=== PATIENT | female | born 1970 | race Caucasian/White ===

== ENCOUNTER 2017-11-26 15:55 | Inpatient (IN) | payer OTHER ==
[2017-11-26 17:04] LABS: ADD MAN DIFF? NO
[2017-11-26 17:05] LABS: BASOPHIL # 0.1 10^3/ul (0.0-0.1); BASOPHILS % 0.4 % (0.0-2.0); EOSINOPHILS % 0.3 % (0.0-7.0); HEMATOCRIT 36.9 % (37.0-47.0); HEMOGLOBIN 13.2 g/dl (12.0-16.0); LYMPHOCYTES # 4.7 10^3/ul (0.8-2.9); LYMPHOCYTES % 40.5 % (15.0-51.0); MEAN CORPUSCULAR HEMOGLOBIN 34.3 pg (29.0-33.0); MEAN CORPUSCULAR HGB CONC 35.8 g/dl (32.0-37.0); MEAN CORPUSCULAR VOLUME 95.8 fl (82.0-101.0); MEAN PLATELET VOLUME 11.5 fl (7.4-10.4); MONOCYTE # 0.7 10^3/ul (0.3-0.9); MONOCYTES % 6.3 % (0.0-11.0); NEUTROPHIL # 6.1 10^3/ul (1.6-7.5); NEUTROPHILS % 52.2 % (39.0-77.0); PLATELET COUNT 205 10^3/UL (140-415); RED BLOOD COUNT 3.85 10^6/ul (4.20-5.40); RED CELL DISTRIBUTION WIDTH 13.6 % (11.5-14.5)
[2017-11-26 17:05] LABS: WHITE BLOOD COUNT 11.7 10^3/ul (4.8-10.8)
[2017-11-26] MEDS: ONDANSETRON 4 MG INJ IV ×2 (17:19→19:57)
[2017-11-26] MEDS: SOD CHLORIDE 0.9% 1,000 ML IV ×2 (17:19→19:57)
[2017-11-26] MEDS: morphine 4 MG/ML VIAL IV (17:20)
[2017-11-26 17:21] LABS: INR 0.95; PROTIME 12.8 Sec (11.9-14.9)
[2017-11-26 17:28] LABS: ALANINE AMINOTRANSFERASE 58 IU/L (13-69); ALBUMIN 4.5 g/dl (3.3-4.9); ALBUMIN/GLOBULIN RATIO 1.18; ALKALINE PHOSPHATASE 113 IU/L (42-121); AMYLASE 77 U/L (11-123); ANION GAP 16 (8-16); ASPARTATE AMINO TRANSFERASE 65 IU/L (15-46); BILIRUBIN,INDIRECT 0.2 mg/dl (0-1.1); BILIRUBIN,TOTAL 0.2 mg/dl (0.2-1.3); BLOOD UREA NITROGEN 8 mg/dl (7-20); CARBON DIOXIDE 29 mmol/L (21-31); CHLORIDE 92 mmol/L (97-110); CREATININE 0.67 mg/dl (0.44-1.00); GLUCOSE 98 mg/dl (70-220); LIPASE 36 U/L (23-300); POTASSIUM 3.2 mmol/L (3.5-5.1); SODIUM 134 mmol/L (135-144); TOTAL PROTEIN 8.3 g/dl (6.1-8.1)
[2017-11-26 17:54] LABS: TROPONIN-I < 0.012 ng/ml (0.00-0.12)
[2017-11-26] MEDS: DIAZEPAM 5 MG/ML SYG IV (18:57)
[2017-11-26] MEDS ORDERED: morphine 2 MG INJ IV (19:00)
[2017-11-26] MEDS ORDERED: ACETAMINOPHEN 325 MG TAB PO ×2 (19:00)
[2017-11-26 19:30] LABS: ADD UMIC YES; UR ASCORBIC ACID NEGATIVE (NEGATIVE); UR BILIRUBIN (Dip) NEGATIVE (NEGATIVE); UR BLOOD (Dip) NEGATIVE (NEGATIVE); UR CLARITY CLEAR (CLEAR); UR COLOR YELLOW (YELLOW); UR GLUCOSE (Dip) NEGATIVE (NEGATIVE); UR KETONES (Dip) NEGATIVE (NEGATIVE); UR LEUKOCYTE ESTERASE (Dip) 2+ Leu/ul (NEGATIVE); UR NITRITE (Dip) NEGATIVE (NEGATIVE); UR RBC 2 /HPF (0-5); UR SPECIFIC GRAVITY (Dip) 1.009 (1.003-1.030); UR SQUAMOUS EPITHELIAL CELL FEW /HPF (FEW); UR TOTAL PROTEIN (Dip) NEGATIVE (NEGATIVE); UR UROBILINOGEN (Dip) 1+ mg/dL (NEGATIVE); UR WBC 7 /HPF (0-5)
[2017-11-26] MEDS: D5W-0.45 NACL + KCL 20 MEQ 1,000 ML IV (19:39)
[2017-11-26] MEDS: HYDROmorphONE 1 MG/ML SYG IV (19:57)
[2017-11-26] MEDS: CIPROFLOXACIN 400MG/D5W 200 ML IVPB (20:57)
[2017-11-27] MEDS: HYDROmorphONE 1 MG/ML SYG IV (00:29)
[2017-11-27] MEDS: ONDANSETRON 4 MG INJ IV ×5 (00:29→21:37)
[2017-11-27] MEDS: HYDROmorphONE 0.5 MG/0.5 ML SYG IV ×5 (02:45→20:41)
[2017-11-27] MEDS: DIAZEPAM 5 MG TAB PO ×2 (03:42→16:33)
[2017-11-27] MEDS: D5W-0.45 NACL + KCL 20 MEQ 1,000 ML IV ×3 (06:27→19:36)
[2017-11-27] MEDS: PANTOPRAZOLE 40 MG INJ IV (06:51)
[2017-11-27 07:17] LABS: ADD MAN DIFF? NO
[2017-11-27 07:25] LABS: WHITE BLOOD COUNT 6.2 10^3/ul (4.8-10.8)
[2017-11-27 07:25] LABS: HEMATOCRIT 31.9 % (37.0-47.0); HEMOGLOBIN 10.8 g/dl (12.0-16.0); MEAN CORPUSCULAR HEMOGLOBIN 34.4 pg (29.0-33.0); MEAN CORPUSCULAR HGB CONC 33.9 g/dl (32.0-37.0); MEAN CORPUSCULAR VOLUME 101.6 fl (82.0-101.0); MEAN PLATELET VOLUME 11.6 fl (7.4-10.4); RED BLOOD COUNT 3.14 10^6/ul (4.20-5.40); RED CELL DISTRIBUTION WIDTH 14.2 % (11.5-14.5)
[2017-11-27 07:34] LABS: PLATELET COUNT 140 10^3/UL (140-415); POSITIVE DIFF @See below
[2017-11-27 07:43] LABS: BASOPHILS % 0.6 % (0.0-2.0); EOSINOPHILS # 0.1 10^3/ul (0.0-0.5); LYMPHOCYTES # 2.7 10^3/ul (0.8-2.9); LYMPHOCYTES % 42.8 % (15.0-51.0); MONOCYTE # 0.4 10^3/ul (0.3-0.9); MONOCYTES % 5.7 % (0.0-11.0); NEUTROPHIL # 3.1 10^3/ul (1.6-7.5); NEUTROPHILS % 48.9 % (39.0-77.0)
[2017-11-27 07:45] LABS: ALANINE AMINOTRANSFERASE 81 IU/L (13-69); ALBUMIN 3.1 g/dl (3.3-4.9); ALBUMIN/GLOBULIN RATIO 0.96; ALKALINE PHOSPHATASE 105 IU/L (42-121); ANION GAP 8 (8-16); ASPARTATE AMINO TRANSFERASE 167 IU/L (15-46); BILIRUBIN,INDIRECT 0.1 mg/dl (0-1.1); BILIRUBIN,TOTAL 0.1 mg/dl (0.2-1.3); BLOOD UREA NITROGEN 3 mg/dl (7-20); CALCIUM 8.8 mg/dl (8.4-10.2); CARBON DIOXIDE 30 mmol/L (21-31); CHLORIDE 103 mmol/L (97-110); CREATININE 0.56 mg/dl (0.44-1.00); GLUCOSE 86 mg/dl (70-220); POTASSIUM 3.1 mmol/L (3.5-5.1); SODIUM 138 mmol/L (135-144); TOTAL PROTEIN 6.3 g/dl (6.1-8.1)
[2017-11-27 07:58] LABS: MAGNESIUM 0.8 mg/dl (1.7-2.5)
[2017-11-27] MEDS: MAGNESIUM SULFATE 3 GM in DEXTROSE 5% 100 ML IVPB (11:01)
[2017-11-27] MEDS ORDERED: BARIUM SULF 2% 450 ML BTL (BERRY SMOOTHIE) PO (17:30)
[2017-11-27] MEDS: IOHEXOL 300MG/ML 150 ML BTL (20:19)
[2017-11-27] MEDS: SOD CHLORIDE 0.9% 100 ML (20:19)
[2017-11-28] MEDS: HYDROmorphONE 0.5 MG/0.5 ML SYG IV ×6 (00:54→21:26)
[2017-11-28] MEDS: ONDANSETRON 4 MG INJ IV ×4 (03:35→22:32)
[2017-11-28] MEDS: DIAZEPAM 5 MG TAB PO ×2 (04:29→16:28)
[2017-11-28] MEDS: PANTOPRAZOLE 40 MG INJ IV (05:20)
[2017-11-28] MEDS: D5W-0.45 NACL + KCL 20 MEQ 1,000 ML IV ×2 (06:46→16:28)
[2017-11-28 07:32] LABS: ADD MAN DIFF? NO
[2017-11-28 07:41] LABS: BASOPHILS % 0.9 % (0.0-2.0); EOSINOPHILS # 0.1 10^3/ul (0.0-0.5); EOSINOPHILS % 1.3 % (0.0-7.0); HEMATOCRIT 30.8 % (37.0-47.0); HEMOGLOBIN 10.4 g/dl (12.0-16.0); LYMPHOCYTES # 2.1 10^3/ul (0.8-2.9); LYMPHOCYTES % 44.5 % (15.0-51.0); MEAN CORPUSCULAR HEMOGLOBIN 34.4 pg (29.0-33.0); MEAN CORPUSCULAR HGB CONC 33.8 g/dl (32.0-37.0); MEAN PLATELET VOLUME 12.6 fl (7.4-10.4); MONOCYTE # 0.5 10^3/ul (0.3-0.9); MONOCYTES % 10.1 % (0.0-11.0); NEUTROPHILS % 42.8 % (39.0-77.0); PLATELET COUNT 126 10^3/UL (140-415); RED BLOOD COUNT 3.02 10^6/ul (4.20-5.40); RED CELL DISTRIBUTION WIDTH 14.2 % (11.5-14.5)
[2017-11-28 07:41] LABS: WHITE BLOOD COUNT 4.7 10^3/ul (4.8-10.8)
[2017-11-28 08:14] LABS: MAGNESIUM 1.3 mg/dl (1.7-2.5)
[2017-11-28 08:16] LABS: ANION GAP 12 (8-16); CALCIUM 8.7 mg/dl (8.4-10.2); CARBON DIOXIDE 27 mmol/L (21-31); CHLORIDE 105 mmol/L (97-110); GLUCOSE 91 mg/dl (70-220); POTASSIUM 4.1 mmol/L (3.5-5.1); SODIUM 140 mmol/L (135-144)
[2017-11-28 08:17] LABS: BLOOD UREA NITROGEN < 2 mg/dl (7-20)
[2017-11-28] MEDS: MAGNESIUM SULFATE 2 GM/50 ML 50 ML IVPB (20:25)
[2017-11-28] MEDS: ZOLPIDEM 5 MG TAB PO (20:25)
[2017-11-29] MEDS: HYDROmorphONE 0.5 MG/0.5 ML SYG IV ×6 (01:21→21:34)
[2017-11-29] MEDS: DIAZEPAM 5 MG TAB PO ×2 (04:22→16:36)
[2017-11-29] MEDS: D5W-0.45 NACL + KCL 20 MEQ 1,000 ML IV ×2 (04:22→22:38)
[2017-11-29] MEDS: ONDANSETRON 4 MG INJ IV ×4 (04:22→22:38)
[2017-11-29] MEDS: PANTOPRAZOLE 40 MG INJ IV (05:22)
[2017-11-29 05:53] LABS: ADD MAN DIFF? NO
[2017-11-29 05:58] LABS: BASOPHILS % 0.5 % (0.0-2.0); EOSINOPHILS # 0.1 10^3/ul (0.0-0.5); EOSINOPHILS % 1.7 % (0.0-7.0); HEMATOCRIT 30.9 % (37.0-47.0); HEMOGLOBIN 10.5 g/dl (12.0-16.0); LYMPHOCYTES # 2.7 10^3/ul (0.8-2.9); MEAN CORPUSCULAR HEMOGLOBIN 34.8 pg (29.0-33.0); MEAN CORPUSCULAR VOLUME 102.3 fl (82.0-101.0); MEAN PLATELET VOLUME 12.7 fl (7.4-10.4); MONOCYTE # 0.5 10^3/ul (0.3-0.9); MONOCYTES % 8.7 % (0.0-11.0); NEUTROPHIL # 2.5 10^3/ul (1.6-7.5); NEUTROPHILS % 42.6 % (39.0-77.0); PLATELET COUNT 136 10^3/UL (140-415); RED BLOOD COUNT 3.02 10^6/ul (4.20-5.40); RED CELL DISTRIBUTION WIDTH 14.2 % (11.5-14.5)
[2017-11-29 06:24] LABS: ANION GAP 12 (8-16); CALCIUM 9.2 mg/dl (8.4-10.2); CARBON DIOXIDE 29 mmol/L (21-31); CHLORIDE 104 mmol/L (97-110); CREATININE 0.55 mg/dl (0.44-1.00); GLUCOSE 96 mg/dl (70-220); MAGNESIUM 1.4 mg/dl (1.7-2.5); POTASSIUM 4.5 mmol/L (3.5-5.1); SODIUM 140 mmol/L (135-144)
[2017-11-29 07:05] LABS: BLOOD UREA NITROGEN < 2 mg/dl (7-20)
[2017-11-29] MEDS: ZOLPIDEM 5 MG TAB PO ×2 (09:57→22:38)
[2017-11-29] MEDS: MAGNESIUM SULFATE 2 GM/50 ML 50 ML IVPB (10:47)
[2017-11-29] MEDS ORDERED: FENTAnyl 50 MCG/ML VIAL (12:09)
[2017-11-29] MEDS ORDERED: PROPOFOL 20 ML (12:09)
[2017-11-30] MEDS: HYDROmorphONE 0.5 MG/0.5 ML SYG IV ×5 (01:40→22:00)
[2017-11-30] MEDS: ONDANSETRON 4 MG INJ IV ×4 (04:42→23:11)
[2017-11-30] MEDS: DIAZEPAM 5 MG TAB PO ×2 (04:42→17:17)
[2017-11-30] MEDS: PANTOPRAZOLE 40 MG INJ IV (05:58)
[2017-11-30 06:17] LABS: ADD MAN DIFF? NO
[2017-11-30 06:21] LABS: WHITE BLOOD COUNT 5.7 10^3/ul (4.8-10.8)
[2017-11-30 06:21] LABS: ABNORMAL IP MESSAGE 1; BASOPHILS % 0.7 % (0.0-2.0); EOSINOPHILS # 0.1 10^3/ul (0.0-0.5); EOSINOPHILS % 2.1 % (0.0-7.0); HEMATOCRIT 31.7 % (37.0-47.0); HEMOGLOBIN 10.6 g/dl (12.0-16.0); LYMPHOCYTES # 2.6 10^3/ul (0.8-2.9); LYMPHOCYTES % 46.1 % (15.0-51.0); MEAN CORPUSCULAR HEMOGLOBIN 34.4 pg (29.0-33.0); MEAN CORPUSCULAR HGB CONC 33.4 g/dl (32.0-37.0); MEAN CORPUSCULAR VOLUME 102.9 fl (82.0-101.0); MEAN PLATELET VOLUME 13.5 fl (7.4-10.4); MONOCYTE # 0.6 10^3/ul (0.3-0.9); MONOCYTES % 10.5 % (0.0-11.0); NEUTROPHIL # 2.3 10^3/ul (1.6-7.5); NEUTROPHILS % 40.2 % (39.0-77.0); PLATELET COUNT 169 10^3/UL (140-415); RED BLOOD COUNT 3.08 10^6/ul (4.20-5.40); RED CELL DISTRIBUTION WIDTH 14.4 % (11.5-14.5)
[2017-11-30 06:33] LABS: POSITIVE DIFF @See below
[2017-11-30 06:55] LABS: ANION GAP 12 (8-16); CALCIUM 9.2 mg/dl (8.4-10.2); CARBON DIOXIDE 30 mmol/L (21-31); CHLORIDE 101 mmol/L (97-110); CREATININE 0.55 mg/dl (0.44-1.00); GLUCOSE 92 mg/dl (70-220); MAGNESIUM 1.3 mg/dl (1.7-2.5); POTASSIUM 4.1 mmol/L (3.5-5.1); SODIUM 139 mmol/L (135-144)
[2017-11-30 07:02] LABS: BLOOD UREA NITROGEN < 2 mg/dl (7-20)
[2017-11-30] MEDS: PHENAZOPYRIDINE 200 MG TAB PO ×2 (12:57→21:27)
[2017-11-30] MEDS: HYDROCODONE/APAP (5/325) TAB PO ×2 (12:57→19:32)
[2017-11-30] MEDS: D5W-0.45 NACL + KCL 20 MEQ 1,000 ML IV (13:13)
[2017-11-30] MEDS: ZOLPIDEM 5 MG TAB PO ×2 (14:05→23:11)
[2017-11-30] MEDS: MAGNESIUM SULFATE 4 GM/100 ML 100 ML IVPB (14:59)
[2017-12-01] MEDS: HYDROCODONE/APAP (5/325) TAB PO ×3 (01:32→13:50)
[2017-12-01] MEDS: D5W-0.45 NACL + KCL 20 MEQ 1,000 ML IV ×2 (02:20→05:30)
[2017-12-01] MEDS: HYDROmorphONE 0.5 MG/0.5 ML SYG IV ×3 (03:07→14:31)
[2017-12-01] MEDS: DIAZEPAM 5 MG TAB PO (05:23)
[2017-12-01] MEDS: ONDANSETRON 4 MG INJ IV ×2 (05:23→11:23)
[2017-12-01] MEDS: PANTOPRAZOLE 40 MG INJ IV (05:29)
[2017-12-01 06:44] LABS: MAGNESIUM 1.7 mg/dl (1.7-2.5)
[2017-12-01 06:57] LABS: ANION GAP 13 (8-16); BLOOD UREA NITROGEN 3 mg/dl (7-20); CALCIUM 9.2 mg/dl (8.4-10.2); CARBON DIOXIDE 29 mmol/L (21-31); CHLORIDE 102 mmol/L (97-110); CREATININE 0.54 mg/dl (0.44-1.00); GLUCOSE 92 mg/dl (70-220); POTASSIUM 4.2 mmol/L (3.5-5.1); SODIUM 140 mmol/L (135-144)
[2017-12-01] MEDS: PHENAZOPYRIDINE 200 MG TAB PO (07:49)
[2017-12-01] MEDS: ZOLPIDEM 5 MG TAB PO (11:24)
[2017-12-01] MEDS ORDERED: PANCRELIPASE PO (17:35)
== END 2017-12-01 16:48 | disposition home or self-care (01) | DRG 383 ==
LOC: PP2 18:57 → E/R 15:55
PROC: 0DB68ZX Excision of Stomach, Via Natural or Artificial Opening Endoscopic, Diagnostic (ICD-10-PCS; principal; 2017-11-29 11:45)
DX: K25.9 Gastric ulcer, unspecified as acute or chronic, without hemorrhage or perforation (principal); E43 Unspecified severe protein-calorie malnutrition; K22.10 Ulcer of esophagus without bleeding; Z68.1 Body mass index [BMI] 19.9 or less, adult; E83.42 Hypomagnesemia; K86.89 Other specified diseases of pancreas; K29.70 Gastritis, unspecified, without bleeding; R19.7 Diarrhea, unspecified
CPT/HCPCS: 36415; 74177; 80048; 80053; 81001; 82150; 83690; 83735; 84484; 84703; 85025; 85610; 85730; 87040; 87086; 88305; 93005; 96374; 96375; 96376; 99285-25

== ENCOUNTER 2018-07-14 12:17 | Inpatient (IN) | payer OTHER ==
[2018-07-14] MEDS: morphine 4 MG/ML VIAL IV (13:25)
[2018-07-14] MEDS: SOD CHLORIDE 0.9% 1,000 ML IV (13:25)
[2018-07-14] MEDS: ONDANSETRON 4 MG INJ IV ×2 (13:25→23:38)
[2018-07-14 13:34] LABS: ADD MAN DIFF? NO
[2018-07-14 13:39] LABS: WHITE BLOOD COUNT 10.3 10^3/ul (4.8-10.8)
[2018-07-14 13:39] LABS: BASOPHILS % 0.3 % (0.0-2.0); EOSINOPHILS % 0.3 % (0.0-7.0); HEMATOCRIT 41.4 % (37.0-47.0); HEMOGLOBIN 14.2 g/dl (12.0-16.0); LYMPHOCYTES # 2.5 10^3/ul (0.8-2.9); LYMPHOCYTES % 24.1 % (15.0-51.0); MEAN CORPUSCULAR HEMOGLOBIN 33.4 pg (29.0-33.0); MEAN CORPUSCULAR HGB CONC 34.3 g/dl (32.0-37.0); MEAN CORPUSCULAR VOLUME 97.4 fl (82.0-101.0); MEAN PLATELET VOLUME 11.2 fl (7.4-10.4); MONOCYTE # 0.5 10^3/ul (0.3-0.9); MONOCYTES % 4.4 % (0.0-11.0); NEUTROPHIL # 7.3 10^3/ul (1.6-7.5); NEUTROPHILS % 70.6 % (39.0-77.0); PLATELET COUNT 247 10^3/UL (140-415); RED BLOOD COUNT 4.25 10^6/ul (4.20-5.40); RED CELL DISTRIBUTION WIDTH 13.3 % (11.5-14.5)
[2018-07-14 13:53] LABS: ADD UMIC YES; UR CLARITY CLEAR (CLEAR); UR COLOR YELLOW (YELLOW)
[2018-07-14 13:54] LABS: UR BILIRUBIN (Dip) 1+ mg/dL (NEGATIVE); UR BLOOD (Dip) TRACE mg/dL (NEGATIVE); UR GLUCOSE (Dip) NEGATIVE (NEGATIVE); UR KETONES (Dip) 1+ mg/dL (NEGATIVE); UR TOTAL PROTEIN (Dip) NEGATIVE (NEGATIVE)
[2018-07-14 13:55] LABS: UR LEUKOCYTE ESTERASE (Dip) 2+ Leu/ul (NEGATIVE); UR NITRITE (Dip) POSITIVE (NEGATIVE); UR UROBILINOGEN (Dip) 0.2 E.U./dL mg/dL (NEGATIVE)
[2018-07-14 13:56] LABS: ALANINE AMINOTRANSFERASE 171 IU/L (13-69); ALBUMIN 4.6 g/dl (3.3-4.9); ALBUMIN/GLOBULIN RATIO 1.06; ALKALINE PHOSPHATASE 162 IU/L (42-121); ANION GAP 14 (8-16); ASPARTATE AMINO TRANSFERASE 179 IU/L (15-46); BILIRUBIN,INDIRECT 1.2 mg/dl (0-1.1); BILIRUBIN,TOTAL 1.2 mg/dl (0.2-1.3); BLOOD UREA NITROGEN 11 mg/dl (7-20); CALCIUM 9.9 mg/dl (8.4-10.2); CARBON DIOXIDE 26 mmol/L (21-31); CHLORIDE 101 mmol/L (97-110); CREATININE 0.73 mg/dl (0.44-1.00); GLUCOSE 132 mg/dl (70-220); POTASSIUM 3.3 mmol/L (3.5-5.1); SODIUM 138 mmol/L (135-144); TOTAL PROTEIN 8.9 g/dl (6.1-8.1)
[2018-07-14 14:01] LABS: UR BACTERIA FEW /HPF (NONE SEEN); UR SQUAMOUS EPITHELIAL CELL FEW /HPF (FEW)
[2018-07-14 14:04] LABS: LIPASE 2394 U/L (23-300)
[2018-07-14] MEDS: HYDROmorphONE 0.5 MG/0.5 ML SYG IV (14:59)
[2018-07-14] MEDS ORDERED: ONDANSETRON 4 MG INJ IV (16:00)
[2018-07-14] MEDS ORDERED: ACETAMINOPHEN 325 MG TAB PO (16:00)
[2018-07-14] MEDS ORDERED: morphine 2 MG INJ IV (18:30)
[2018-07-14] MEDS: D5W-0.45 NACL + KCL 20 MEQ 1,000 ML IV (18:48)
[2018-07-14] MEDS: NICOTINE (14 MG/24 HR) PATCH TRANSDERM (18:48)
[2018-07-14] MEDS ORDERED: DIAZEPAM 5 MG/ML SYG IV (19:30)
[2018-07-14] MEDS: HYDROmorphONE 1 MG/ML SYG IV ×2 (19:54→23:35)
[2018-07-14] MEDS: DIAZEPAM 5 MG/ML SYG IV (22:30)
[2018-07-15] MEDS: HYDROmorphONE 1 MG/ML SYG IV ×7 (02:40→23:59)
[2018-07-15] MEDS: D5W-0.45 NACL + KCL 20 MEQ 1,000 ML IV ×2 (04:17→15:06)
[2018-07-15] MEDS: DIAZEPAM 5 MG/ML SYG IV ×2 (05:01→17:04)
[2018-07-15] MEDS: PANTOPRAZOLE 40 MG INJ IV (05:06)
[2018-07-15 05:39] LABS: ADD MAN DIFF? NO
[2018-07-15 05:42] LABS: BASOPHILS % 0.3 % (0.0-2.0); EOSINOPHILS # 0.1 10^3/ul (0.0-0.5); EOSINOPHILS % 0.7 % (0.0-7.0); HEMATOCRIT 37.2 % (37.0-47.0); HEMOGLOBIN 12.7 g/dl (12.0-16.0); LYMPHOCYTES # 2.1 10^3/ul (0.8-2.9); LYMPHOCYTES % 29.6 % (15.0-51.0); MEAN CORPUSCULAR HEMOGLOBIN 33.5 pg (29.0-33.0); MEAN CORPUSCULAR HGB CONC 34.1 g/dl (32.0-37.0); MEAN CORPUSCULAR VOLUME 98.2 fl (82.0-101.0); MEAN PLATELET VOLUME 11.4 fl (7.4-10.4); MONOCYTE # 0.4 10^3/ul (0.3-0.9); MONOCYTES % 4.9 % (0.0-11.0); NEUTROPHIL # 4.6 10^3/ul (1.6-7.5); NEUTROPHILS % 64.1 % (39.0-77.0); PLATELET COUNT 208 10^3/UL (140-415); RED BLOOD COUNT 3.79 10^6/ul (4.20-5.40)
[2018-07-15 05:42] LABS: WHITE BLOOD COUNT 7.2 10^3/ul (4.8-10.8)
[2018-07-15 06:19] LABS: ALANINE AMINOTRANSFERASE 261 IU/L (13-69); ALBUMIN 3.7 g/dl (3.3-4.9); ALBUMIN/GLOBULIN RATIO 1.02; ALKALINE PHOSPHATASE 300 IU/L (42-121); ANION GAP 13 (8-16); ASPARTATE AMINO TRANSFERASE 606 IU/L (15-46); BILIRUBIN,INDIRECT 1.4 mg/dl (0-1.1); BILIRUBIN,TOTAL 2.1 mg/dl (0.2-1.3); BLOOD UREA NITROGEN 6 mg/dl (7-20); CALCIUM 9.2 mg/dl (8.4-10.2); CARBON DIOXIDE 26 mmol/L (21-31); CHLORIDE 103 mmol/L (97-110); CREATININE 0.49 mg/dl (0.44-1.00); GLUCOSE 96 mg/dl (70-220); POTASSIUM 3.3 mmol/L (3.5-5.1); SODIUM 139 mmol/L (135-144); TOTAL PROTEIN 7.3 g/dl (6.1-8.1)
[2018-07-15] MEDS: NICOTINE (14 MG/24 HR) PATCH TRANSDERM ×2 (09:00→11:06)
[2018-07-15] MEDS: ONDANSETRON 4 MG INJ IV ×2 (09:09→20:54)
[2018-07-15] MEDS: PIPER-TAZO 3.375 GM IV (PMX) 100 ML IVPB ×2 (10:37→22:44)
[2018-07-15] MEDS: LORAZEPAM 2 MG INJ IM (10:43)
[2018-07-15] MEDS: LORAZEPAM 2 MG INJ IV (12:57)
[2018-07-15 13:26] LABS: LIPASE 1090 U/L (23-300)
[2018-07-15 14:08] LABS: CARCINOEMBRYONIC ANTIGEN 12.2 ng/ml (0.0-5.0)
[2018-07-15] MEDS: CREON (24K-76K-120K) 1 CAP PO ×2 (14:33→17:59)
[2018-07-15] MEDS: POTASSIUM CHLORIDE (SR) 20 MEQ TAB PO (15:06)
[2018-07-16] MEDS: D5W-0.45 NACL + KCL 20 MEQ 1,000 ML IV ×3 (01:01→22:01)
[2018-07-16] MEDS: DIAZEPAM 5 MG/ML SYG IV ×2 (01:02→07:07)
[2018-07-16] MEDS: HYDROmorphONE 1 MG/ML SYG IV ×7 (03:05→22:04)
[2018-07-16] MEDS: PIPER-TAZO 3.375 GM IV (PMX) 100 ML IVPB ×3 (06:12→22:00)
[2018-07-16] MEDS: PANTOPRAZOLE 40 MG INJ IV (06:12)
[2018-07-16 06:15] LABS: ADD MAN DIFF? NO
[2018-07-16 06:33] LABS: WHITE BLOOD COUNT 5.3 10^3/ul (4.8-10.8)
[2018-07-16 06:33] LABS: BASOPHILS % 0.4 % (0.0-2.0); EOSINOPHILS # 0.1 10^3/ul (0.0-0.5); EOSINOPHILS % 1.5 % (0.0-7.0); HEMATOCRIT 36.8 % (37.0-47.0); HEMOGLOBIN 12.4 g/dl (12.0-16.0); LYMPHOCYTES # 1.6 10^3/ul (0.8-2.9); LYMPHOCYTES % 30.6 % (15.0-51.0); MEAN CORPUSCULAR HEMOGLOBIN 33.7 pg (29.0-33.0); MEAN CORPUSCULAR HGB CONC 33.7 g/dl (32.0-37.0); MEAN PLATELET VOLUME 11.8 fl (7.4-10.4); MONOCYTE # 0.3 10^3/ul (0.3-0.9); MONOCYTES % 4.9 % (0.0-11.0); NEUTROPHIL # 3.3 10^3/ul (1.6-7.5); NEUTROPHILS % 62.2 % (39.0-77.0); PLATELET COUNT 171 10^3/UL (140-415); RED BLOOD COUNT 3.68 10^6/ul (4.20-5.40)
[2018-07-16 06:45] LABS: LIPASE 160 U/L (23-300)
[2018-07-16 07:03] LABS: ALANINE AMINOTRANSFERASE 177 IU/L (13-69); ALBUMIN 3.4 g/dl (3.3-4.9); ALBUMIN/GLOBULIN RATIO 0.97; ALKALINE PHOSPHATASE 245 IU/L (42-121); ANION GAP 11 (8-16); ASPARTATE AMINO TRANSFERASE 223 IU/L (15-46); CALCIUM 8.9 mg/dl (8.4-10.2); CARBON DIOXIDE 27 mmol/L (21-31); CHLORIDE 105 mmol/L (97-110); CREATININE 0.44 mg/dl (0.44-1.00); GLUCOSE 117 mg/dl (70-220); POTASSIUM 4.5 mmol/L (3.5-5.1); SODIUM 138 mmol/L (135-144); TOTAL PROTEIN 6.9 g/dl (6.1-8.1)
[2018-07-16] MEDS: ONDANSETRON 4 MG INJ IV (07:07)
[2018-07-16 07:09] LABS: BLOOD UREA NITROGEN < 2 mg/dl (7-20)
[2018-07-16] MEDS: CREON (24K-76K-120K) 1 CAP PO ×3 (08:13→18:20)
[2018-07-16] MEDS: NICOTINE (14 MG/24 HR) PATCH TRANSDERM (08:14)
[2018-07-16] MEDS: DIAZEPAM 5 MG TAB PO ×2 (13:07→20:09)
[2018-07-16] MEDS ORDERED: HYDROmorphONE 1 MG/ML SYG IV (19:30)
[2018-07-16] MEDS: DIPHENHYDRAMINE 25 MG CAP PO (22:53)
[2018-07-17] MEDS: HYDROmorphONE 1 MG/ML SYG IV ×7 (01:28→21:34)
[2018-07-17] MEDS: DIAZEPAM 5 MG TAB PO ×4 (02:39→23:19)
[2018-07-17] MEDS: PIPER-TAZO 3.375 GM IV (PMX) 100 ML IVPB ×3 (05:57→22:32)
[2018-07-17] MEDS: DIPHENHYDRAMINE 25 MG CAP PO ×3 (05:57→20:54)
[2018-07-17] MEDS: PANTOPRAZOLE 40 MG INJ IV ×2 (05:57→18:07)
[2018-07-17] MEDS: D5W-0.45 NACL + KCL 20 MEQ 1,000 ML IV ×3 (06:04→20:54)
[2018-07-17] MEDS: ONDANSETRON 4 MG INJ IV ×2 (07:53→23:19)
[2018-07-17] MEDS: NICOTINE (14 MG/24 HR) PATCH TRANSDERM (08:16)
[2018-07-17] MEDS: CREON (24K-76K-120K) 1 CAP PO ×3 (08:16→18:07)
[2018-07-17 11:12] LABS: ADD MAN DIFF? NO
[2018-07-17 11:19] LABS: ALANINE AMINOTRANSFERASE 130 IU/L (13-69); ALBUMIN 3.4 g/dl (3.3-4.9); ALBUMIN/GLOBULIN RATIO 1.09; ALKALINE PHOSPHATASE 188 IU/L (42-121); ANION GAP 14 (8-16); ASPARTATE AMINO TRANSFERASE 104 IU/L (15-46); BILIRUBIN,INDIRECT 0.3 mg/dl (0-1.1); BILIRUBIN,TOTAL 0.3 mg/dl (0.2-1.3); CALCIUM 8.9 mg/dl (8.4-10.2); CARBON DIOXIDE 25 mmol/L (21-31); CHLORIDE 101 mmol/L (97-110); CREATININE 0.41 mg/dl (0.44-1.00); GLUCOSE 144 mg/dl (70-220); LIPASE 48 U/L (23-300); POTASSIUM 4.1 mmol/L (3.5-5.1); SODIUM 136 mmol/L (135-144); TOTAL PROTEIN 6.5 g/dl (6.1-8.1)
[2018-07-17 11:20] LABS: WHITE BLOOD COUNT 7.1 10^3/ul (4.8-10.8)
[2018-07-17 11:20] LABS: BASOPHILS % 0.3 % (0.0-2.0); BLOOD UREA NITROGEN < 2 mg/dl (7-20); EOSINOPHILS # 0.1 10^3/ul (0.0-0.5); EOSINOPHILS % 0.7 % (0.0-7.0); HEMATOCRIT 32.8 % (37.0-47.0); LYMPHOCYTES # 1.3 10^3/ul (0.8-2.9); LYMPHOCYTES % 18.2 % (15.0-51.0); MEAN CORPUSCULAR HEMOGLOBIN 32.9 pg (29.0-33.0); MEAN CORPUSCULAR HGB CONC 33.5 g/dl (32.0-37.0); MEAN CORPUSCULAR VOLUME 98.2 fl (82.0-101.0); MEAN PLATELET VOLUME 12.1 fl (7.4-10.4); MONOCYTE # 0.4 10^3/ul (0.3-0.9); MONOCYTES % 5.5 % (0.0-11.0); NEUTROPHIL # 5.4 10^3/ul (1.6-7.5); PLATELET COUNT 176 10^3/UL (140-415); RED BLOOD COUNT 3.34 10^6/ul (4.20-5.40)
[2018-07-17] MEDS ORDERED: ACETAMINOPHEN 325 MG TAB PO (21:00)
[2018-07-18] MEDS: DIAZEPAM 5 MG TAB PO ×2 (01:57→23:18)
[2018-07-18] MEDS: D5W-0.45 NACL + KCL 20 MEQ 1,000 ML IV (02:17)
[2018-07-18 02:56] LABS: ADD MAN DIFF? NO
[2018-07-18 02:59] LABS: BASOPHILS % 0.4 % (0.0-2.0); EOSINOPHILS % 0.6 % (0.0-7.0); HEMATOCRIT 33.1 % (37.0-47.0); HEMOGLOBIN 11.1 g/dl (12.0-16.0); LYMPHOCYTES # 1.5 10^3/ul (0.8-2.9); LYMPHOCYTES % 29.1 % (15.0-51.0); MEAN CORPUSCULAR HEMOGLOBIN 33.1 pg (29.0-33.0); MEAN CORPUSCULAR HGB CONC 33.5 g/dl (32.0-37.0); MEAN CORPUSCULAR VOLUME 98.8 fl (82.0-101.0); MONOCYTE # 0.4 10^3/ul (0.3-0.9); MONOCYTES % 7.4 % (0.0-11.0); NEUTROPHIL # 3.1 10^3/ul (1.6-7.5); NEUTROPHILS % 62.3 % (39.0-77.0); PLATELET COUNT 166 10^3/UL (140-415); RED BLOOD COUNT 3.35 10^6/ul (4.20-5.40)
[2018-07-18 03:09] LABS: ADD UMIC NO; UR ASCORBIC ACID NEGATIVE (NEGATIVE); UR BILIRUBIN (Dip) NEGATIVE (NEGATIVE); UR BLOOD (Dip) NEGATIVE (NEGATIVE); UR CLARITY CLEAR (CLEAR); UR COLOR STRAW (YELLOW); UR GLUCOSE (Dip) NEGATIVE (NEGATIVE); UR KETONES (Dip) NEGATIVE (NEGATIVE); UR LEUKOCYTE ESTERASE (Dip) NEGATIVE Leu/ul (NEGATIVE); UR NITRITE (Dip) NEGATIVE (NEGATIVE); UR SPECIFIC GRAVITY (Dip) 1.006 (1.003-1.030); UR TOTAL PROTEIN (Dip) NEGATIVE (NEGATIVE); UR UROBILINOGEN (Dip) NEGATIVE (NEGATIVE)
[2018-07-18 03:16] LABS: ANION GAP 12 (8-16); CALCIUM 8.2 mg/dl (8.4-10.2); CARBON DIOXIDE 25 mmol/L (21-31); CHLORIDE 99 mmol/L (97-110); CREATININE 0.39 mg/dl (0.44-1.00); SODIUM 130 mmol/L (135-144)
[2018-07-18 03:20] LABS: AMMONIA < 9 umol/l (9-30)
[2018-07-18 03:27] LABS: BLOOD UREA NITROGEN < 2 mg/dl (7-20)
[2018-07-18 03:34] LABS: POTASSIUM 6.2 mmol/L (3.5-5.1)
[2018-07-18 03:53] LABS: GLUCOSE 601 mg/dl (70-220)
[2018-07-18 04:27] LABS: AMPHETAMINE/METHAMPHETAMINE Negative (NEGATIVE); BARBITURATES Negative (NEGATIVE); CANNABINOIDS Positive (NEGATIVE); COCAINE Negative (NEGATIVE); OPIATES Positive (NEGATIVE)
[2018-07-18 04:30] LABS: BENZODIAZEPINES Positive (NEGATIVE)
[2018-07-18] MEDS: NA POLYST SULFON 15 GM/60 ML BTL PO (05:08)
[2018-07-18] MEDS: PANTOPRAZOLE 40 MG INJ IV ×2 (05:40→18:22)
[2018-07-18] MEDS: PIPER-TAZO 3.375 GM IV (PMX) 100 ML IVPB ×3 (05:43→21:18)
[2018-07-18] MEDS: HYDROmorphONE 1 MG/ML SYG IV ×4 (06:43→21:24)
[2018-07-18 06:53] LABS: ADD MAN DIFF? NO
[2018-07-18 06:55] LABS: WHITE BLOOD COUNT 5.4 10^3/ul (4.8-10.8)
[2018-07-18 06:55] LABS: BASOPHILS % 0.6 % (0.0-2.0); EOSINOPHILS % 0.6 % (0.0-7.0); HEMATOCRIT 34.9 % (37.0-47.0); HEMOGLOBIN 11.8 g/dl (12.0-16.0); LYMPHOCYTES # 1.3 10^3/ul (0.8-2.9); LYMPHOCYTES % 23.9 % (15.0-51.0); MEAN CORPUSCULAR HEMOGLOBIN 33.3 pg (29.0-33.0); MEAN CORPUSCULAR HGB CONC 33.8 g/dl (32.0-37.0); MEAN CORPUSCULAR VOLUME 98.6 fl (82.0-101.0); MONOCYTE # 0.6 10^3/ul (0.3-0.9); MONOCYTES % 10.8 % (0.0-11.0); NEUTROPHIL # 3.5 10^3/ul (1.6-7.5); NEUTROPHILS % 63.7 % (39.0-77.0); PLATELET COUNT 179 10^3/UL (140-415); RED BLOOD COUNT 3.54 10^6/ul (4.20-5.40)
[2018-07-18] MEDS ORDERED: PANTOPRAZOLE (EC) 40 MG TAB PO (07:00)
[2018-07-18 07:38] LABS: ALANINE AMINOTRANSFERASE 100 IU/L (13-69); ALBUMIN 3.5 g/dl (3.3-4.9); ALBUMIN/GLOBULIN RATIO 1.02; ALKALINE PHOSPHATASE 176 IU/L (42-121); ANION GAP 14 (8-16); ASPARTATE AMINO TRANSFERASE 56 IU/L (15-46); BILIRUBIN,INDIRECT 0.1 mg/dl (0-1.1); BILIRUBIN,TOTAL 0.1 mg/dl (0.2-1.3); CALCIUM 9.7 mg/dl (8.4-10.2); CARBON DIOXIDE 29 mmol/L (21-31); CHLORIDE 101 mmol/L (97-110); CREATININE 0.49 mg/dl (0.44-1.00); GLUCOSE 131 mg/dl (70-220); SODIUM 140 mmol/L (135-144); TOTAL PROTEIN 6.9 g/dl (6.1-8.1)
[2018-07-18 07:41] LABS: BLOOD UREA NITROGEN < 2 mg/dl (7-20)
[2018-07-18 07:47] LABS: LIPASE 70 U/L (23-300)
[2018-07-18] MEDS: NICOTINE (14 MG/24 HR) PATCH TRANSDERM (09:45)
[2018-07-18] MEDS: CREON (24K-76K-120K) 1 CAP PO ×3 (09:46→18:22)
[2018-07-19] MEDS: SOD CHLORIDE 0.45% 1,000 ML IV (00:58)
[2018-07-19] MEDS: HYDROmorphONE 1 MG/ML SYG IV ×3 (01:03→22:23)
[2018-07-19] MEDS: PANTOPRAZOLE 40 MG INJ IV ×2 (05:50→18:03)
[2018-07-19] MEDS: PIPER-TAZO 3.375 GM IV (PMX) 100 ML IVPB ×3 (05:50→22:20)
[2018-07-19 06:14] LABS: ADD MAN DIFF? NO
[2018-07-19 06:27] LABS: WHITE BLOOD COUNT 6.8 10^3/ul (4.8-10.8)
[2018-07-19 06:27] LABS: BASOPHILS % 0.3 % (0.0-2.0); EOSINOPHILS # 0.1 10^3/ul (0.0-0.5); EOSINOPHILS % 2.1 % (0.0-7.0); HEMATOCRIT 32.3 % (37.0-47.0); HEMOGLOBIN 10.9 g/dl (12.0-16.0); LYMPHOCYTES # 2.4 10^3/ul (0.8-2.9); MEAN CORPUSCULAR HEMOGLOBIN 32.5 pg (29.0-33.0); MEAN CORPUSCULAR HGB CONC 33.7 g/dl (32.0-37.0); MEAN CORPUSCULAR VOLUME 96.4 fl (82.0-101.0); MONOCYTE # 1.1 10^3/ul (0.3-0.9); MONOCYTES % 16.4 % (0.0-11.0); NEUTROPHIL # 3.1 10^3/ul (1.6-7.5); NEUTROPHILS % 45.9 % (39.0-77.0); PLATELET COUNT 179 10^3/UL (140-415); RED BLOOD COUNT 3.35 10^6/ul (4.20-5.40); RED CELL DISTRIBUTION WIDTH 13.2 % (11.5-14.5)
[2018-07-19 06:40] LABS: INR 0.82; PROTIME 11.3 Sec (11.9-14.9); PT RATIO 0.9
[2018-07-19 06:50] LABS: LIPASE 52 U/L (23-300)
[2018-07-19 07:05] LABS: ALANINE AMINOTRANSFERASE 74 IU/L (13-69); ALBUMIN 3.3 g/dl (3.3-4.9); ALKALINE PHOSPHATASE 155 IU/L (42-121); ANION GAP 14 (8-16); ASPARTATE AMINO TRANSFERASE 33 IU/L (15-46); BILIRUBIN,INDIRECT 0.1 mg/dl (0-1.1); BILIRUBIN,TOTAL 0.1 mg/dl (0.2-1.3); CALCIUM 9.7 mg/dl (8.4-10.2); CARBON DIOXIDE 28 mmol/L (21-31); CHLORIDE 105 mmol/L (97-110); CREATININE 0.37 mg/dl (0.44-1.00); GLUCOSE 114 mg/dl (70-220); POTASSIUM 3.6 mmol/L (3.5-5.1); SODIUM 143 mmol/L (135-144); TOTAL PROTEIN 6.6 g/dl (6.1-8.1)
[2018-07-19 07:06] LABS: BLOOD UREA NITROGEN < 2 mg/dl (7-20)
[2018-07-19] MEDS: CREON (24K-76K-120K) 1 CAP PO ×3 (08:00→18:03)
[2018-07-19] MEDS: NICOTINE (14 MG/24 HR) PATCH TRANSDERM (08:26)
[2018-07-19] MEDS ORDERED: MIDAZOLAM 1 MG/ML 2 ML INJ (11:25)
[2018-07-19] MEDS ORDERED: FENTAnyl 50 MCG/ML VIAL (11:25)
[2018-07-19] MEDS ORDERED: SUCCINYLCHOLINE CHLORIDE 100 MG/5 ML SYG IV ×2 (11:25→11:26)
[2018-07-19] MEDS ORDERED: PROPOFOL 20 ML (11:26)
[2018-07-19] MEDS ORDERED: ONDANSETRON 4 MG INJ (11:26)
[2018-07-19] MEDS: INDOMETHACIN 50 MG SUPP PR (11:30)
[2018-07-19] MEDS ORDERED: ONDANSETRON 4 MG INJ IV (12:00)
[2018-07-19] MEDS ORDERED: KETOROLAC 30 MG INJ IV (12:00)
[2018-07-19] MEDS ORDERED: HYDROmorphONE 1 MG/5 ML IV SYRINGE IV (12:00)
[2018-07-19] MEDS ORDERED: LEVALBUTEROL (NEB) 1.25 MG/0.5 ML AMP HHN (12:00)
[2018-07-19] MEDS ORDERED: IPRATROPIUM (NEB) 0.5 MG/2.5 ML AMP HHN (12:00)
[2018-07-19] MEDS ORDERED: FENTAnyl 50 MCG/ML VIAL IV ×2 (12:00)
[2018-07-19] MEDS ORDERED: MEPERIDINE 25 MG INJ IV (12:00)
[2018-07-19] MEDS: DIPHENHYDRAMINE 50 MG INJ IV (13:56)
[2018-07-19] MEDS: HYDROmorphONE 1 MG/5 ML IV SYRINGE IV (14:02)
[2018-07-19] MEDS: LACTATED RINGER'S 1,000 ML IV (14:33)
[2018-07-19] MEDS: LACTATED RINGER'S 1,000 ML IV* ×2 (17:50→23:31)
[2018-07-19] MEDS: HYDROCODONE/APAP (5/325) TAB PO (19:39)
[2018-07-19] MEDS: DIAZEPAM 5 MG TAB PO (23:31)
[2018-07-20] MEDS: HYDROmorphONE 1 MG/ML SYG IV ×5 (02:25→20:37)
[2018-07-20] MEDS: PIPER-TAZO 3.375 GM IV (PMX) 100 ML IVPB ×3 (05:36→20:37)
[2018-07-20] MEDS: PANTOPRAZOLE 40 MG INJ IV ×2 (05:36→17:54)
[2018-07-20] MEDS: LACTATED RINGER'S 1,000 ML IV* ×3 (05:37→20:37)
[2018-07-20 06:17] LABS: ADD MAN DIFF? NO
[2018-07-20 06:31] LABS: WHITE BLOOD COUNT 8.2 10^3/ul (4.8-10.8)
[2018-07-20 06:31] LABS: BASOPHILS % 0.4 % (0.0-2.0); EOSINOPHILS % 0.4 % (0.0-7.0); HEMATOCRIT 32.4 % (37.0-47.0); HEMOGLOBIN 10.7 g/dl (12.0-16.0); LYMPHOCYTES # 2.8 10^3/ul (0.8-2.9); LYMPHOCYTES % 33.9 % (15.0-51.0); MEAN CORPUSCULAR HEMOGLOBIN 32.4 pg (29.0-33.0); MEAN CORPUSCULAR VOLUME 98.2 fl (82.0-101.0); MEAN PLATELET VOLUME 12.2 fl (7.4-10.4); MONOCYTE # 0.8 10^3/ul (0.3-0.9); MONOCYTES % 10.2 % (0.0-11.0); NEUTROPHIL # 4.5 10^3/ul (1.6-7.5); NEUTROPHILS % 54.9 % (39.0-77.0); PLATELET COUNT 219 10^3/UL (140-415); RED CELL DISTRIBUTION WIDTH 13.2 % (11.5-14.5)
[2018-07-20 07:14] LABS: ANION GAP 13 (8-16); CALCIUM 9.6 mg/dl (8.4-10.2); CARBON DIOXIDE 29 mmol/L (21-31); CHLORIDE 108 mmol/L (97-110); CREATININE 0.44 mg/dl (0.44-1.00); GLUCOSE 140 mg/dl (70-220); POTASSIUM 3.7 mmol/L (3.5-5.1); SODIUM 146 mmol/L (135-144)
[2018-07-20 07:19] LABS: BLOOD UREA NITROGEN < 2 mg/dl (7-20)
[2018-07-20] MEDS: CREON (24K-76K-120K) 1 CAP PO ×3 (08:00→17:53)
[2018-07-20] MEDS: NICOTINE (14 MG/24 HR) PATCH TRANSDERM (09:07)
[2018-07-20 14:50] LABS: ADD MAN DIFF? NO
[2018-07-20 14:56] LABS: WHITE BLOOD COUNT 7.7 10^3/ul (4.8-10.8)
[2018-07-20 14:56] LABS: BASOPHILS % 0.3 % (0.0-2.0); EOSINOPHILS # 0.1 10^3/ul (0.0-0.5); EOSINOPHILS % 0.8 % (0.0-7.0); HEMATOCRIT 29.6 % (37.0-47.0); HEMOGLOBIN 9.9 g/dl (12.0-16.0); LYMPHOCYTES # 2.9 10^3/ul (0.8-2.9); MEAN CORPUSCULAR HEMOGLOBIN 32.9 pg (29.0-33.0); MEAN CORPUSCULAR HGB CONC 33.4 g/dl (32.0-37.0); MEAN CORPUSCULAR VOLUME 98.3 fl (82.0-101.0); MEAN PLATELET VOLUME 12.8 fl (7.4-10.4); MONOCYTE # 0.8 10^3/ul (0.3-0.9); MONOCYTES % 10.6 % (0.0-11.0); NEUTROPHIL # 3.9 10^3/ul (1.6-7.5); PLATELET COUNT 179 10^3/UL (140-415); RED BLOOD COUNT 3.01 10^6/ul (4.20-5.40); RED CELL DISTRIBUTION WIDTH 13.2 % (11.5-14.5)
[2018-07-20 15:15] LABS: ANION GAP 8 (8-16); CALCIUM 9.4 mg/dl (8.4-10.2); CARBON DIOXIDE 29 mmol/L (21-31); CHLORIDE 107 mmol/L (97-110); CREATININE 0.41 mg/dl (0.44-1.00); GLUCOSE 112 mg/dl (70-220); POTASSIUM 3.1 mmol/L (3.5-5.1); SODIUM 141 mmol/L (135-144)
[2018-07-20 15:18] LABS: BLOOD UREA NITROGEN < 2 mg/dl (7-20)
[2018-07-20] MEDS: DIAZEPAM 5 MG TAB PO (16:12)
[2018-07-20] MEDS: POTASSIUM CHLORIDE (SR) 20 MEQ TAB PO (17:53)
[2018-07-20] MEDS: ONDANSETRON 4 MG INJ IV (23:59)
[2018-07-21] MEDS: DIAZEPAM 5 MG TAB PO ×2 (02:07→14:06)
[2018-07-21] MEDS: PIPER-TAZO 3.375 GM IV (PMX) 100 ML IVPB ×3 (05:38→20:45)
[2018-07-21] MEDS: PANTOPRAZOLE 40 MG INJ IV ×2 (05:38→17:43)
[2018-07-21] MEDS: HYDROmorphONE 1 MG/ML SYG IV ×6 (05:38→20:48)
[2018-07-21 06:07] LABS: ADD MAN DIFF? NO
[2018-07-21 06:10] LABS: BASOPHILS % 0.6 % (0.0-2.0); EOSINOPHILS # 0.1 10^3/ul (0.0-0.5); EOSINOPHILS % 1.7 % (0.0-7.0); HEMATOCRIT 33.7 % (37.0-47.0); HEMOGLOBIN 11.3 g/dl (12.0-16.0); LYMPHOCYTES % 43.6 % (15.0-51.0); MEAN CORPUSCULAR HEMOGLOBIN 33.4 pg (29.0-33.0); MEAN CORPUSCULAR HGB CONC 33.5 g/dl (32.0-37.0); MEAN CORPUSCULAR VOLUME 99.7 fl (82.0-101.0); MEAN PLATELET VOLUME 11.8 fl (7.4-10.4); MONOCYTE # 0.8 10^3/ul (0.3-0.9); MONOCYTES % 10.7 % (0.0-11.0); NEUTROPHILS % 43.1 % (39.0-77.0); PLATELET COUNT 237 10^3/UL (140-415); RED BLOOD COUNT 3.38 10^6/ul (4.20-5.40); RED CELL DISTRIBUTION WIDTH 13.2 % (11.5-14.5)
[2018-07-21 06:42] LABS: ANION GAP 8 (8-16); CALCIUM 9.3 mg/dl (8.4-10.2); CARBON DIOXIDE 32 mmol/L (21-31); CHLORIDE 106 mmol/L (97-110); CREATININE 0.41 mg/dl (0.44-1.00); GLUCOSE 90 mg/dl (70-220); POTASSIUM 3.2 mmol/L (3.5-5.1); SODIUM 143 mmol/L (135-144)
[2018-07-21 06:43] LABS: BLOOD UREA NITROGEN < 2 mg/dl (7-20)
[2018-07-21] MEDS: CREON (24K-76K-120K) 1 CAP PO ×3 (08:21→17:43)
[2018-07-21] MEDS: LACTATED RINGER'S 1,000 ML IV* ×2 (08:21→17:35)
[2018-07-21] MEDS: NICOTINE (14 MG/24 HR) PATCH TRANSDERM (08:21)
[2018-07-21] MEDS: ONDANSETRON 4 MG TAB PO (12:28)
[2018-07-21] MEDS: POTASSIUM CHLORIDE (SR) 20 MEQ TAB PO (12:45)
[2018-07-21] MEDS: ONDANSETRON 4 MG INJ IV (21:00)
[2018-07-21] MEDS: HYDROCODONE/APAP (5/325) TAB PO (22:50)
[2018-07-22] MEDS: LACTATED RINGER'S 1,000 ML IV* ×3 (00:05→13:09)
[2018-07-22] MEDS: HYDROmorphONE 1 MG/ML SYG IV ×6 (00:45→22:39)
[2018-07-22 05:39] LABS: ADD MAN DIFF? NO
[2018-07-22 05:41] LABS: BASOPHIL # 0.1 10^3/ul (0.0-0.1); BASOPHILS % 0.9 % (0.0-2.0); EOSINOPHILS # 0.2 10^3/ul (0.0-0.5); EOSINOPHILS % 2.6 % (0.0-7.0); HEMOGLOBIN 11.7 g/dl (12.0-16.0); LYMPHOCYTES # 3.3 10^3/ul (0.8-2.9); LYMPHOCYTES % 47.4 % (15.0-51.0); MEAN CORPUSCULAR HEMOGLOBIN 32.8 pg (29.0-33.0); MEAN CORPUSCULAR HGB CONC 33.4 g/dl (32.0-37.0); MEAN PLATELET VOLUME 11.8 fl (7.4-10.4); MONOCYTE # 0.9 10^3/ul (0.3-0.9); MONOCYTES % 12.5 % (0.0-11.0); NEUTROPHIL # 2.5 10^3/ul (1.6-7.5); NEUTROPHILS % 36.3 % (39.0-77.0); PLATELET COUNT 293 10^3/UL (140-415); RED BLOOD COUNT 3.57 10^6/ul (4.20-5.40); RED CELL DISTRIBUTION WIDTH 13.2 % (11.5-14.5)
[2018-07-22 05:41] LABS: WHITE BLOOD COUNT 6.9 10^3/ul (4.8-10.8)
[2018-07-22] MEDS: PANTOPRAZOLE 40 MG INJ IV ×2 (05:54→17:34)
[2018-07-22] MEDS: PIPER-TAZO 3.375 GM IV (PMX) 100 ML IVPB ×3 (05:57→22:32)
[2018-07-22 06:15] LABS: ANION GAP 11 (8-16); CALCIUM 9.9 mg/dl (8.4-10.2); CARBON DIOXIDE 37 mmol/L (21-31); CHLORIDE 99 mmol/L (97-110); GLUCOSE 99 mg/dl (70-220); POTASSIUM 3.4 mmol/L (3.5-5.1); SODIUM 144 mmol/L (135-144)
[2018-07-22 06:18] LABS: BLOOD UREA NITROGEN < 2 mg/dl (7-20)
[2018-07-22] MEDS: DIAZEPAM 5 MG TAB PO ×2 (06:48→21:21)
[2018-07-22] MEDS: NICOTINE (14 MG/24 HR) PATCH TRANSDERM (08:54)
[2018-07-22] MEDS: CREON (24K-76K-120K) 1 CAP PO ×3 (08:54→17:34)
[2018-07-22] MEDS: HYDROCODONE/APAP (5/325) TAB PO (11:58)
[2018-07-22] MEDS: ONDANSETRON 4 MG INJ IV (22:39)
[2018-07-23] MEDS: LACTATED RINGER'S 1,000 ML IV* (00:05)
[2018-07-23] MEDS: ONDANSETRON 4 MG INJ IV (04:56)
[2018-07-23] MEDS: HYDROmorphONE 1 MG/ML SYG IV ×3 (04:56→15:23)
[2018-07-23] MEDS: PIPER-TAZO 3.375 GM IV (PMX) 100 ML IVPB (05:47)
[2018-07-23] MEDS: PANTOPRAZOLE 40 MG INJ IV (05:47)
[2018-07-23 07:25] LABS: ALANINE AMINOTRANSFERASE 31 IU/L (13-69); ALBUMIN 3.4 g/dl (3.3-4.9); ALBUMIN/GLOBULIN RATIO 1.03; ALKALINE PHOSPHATASE 91 IU/L (42-121); ANION GAP 9 (8-16); ASPARTATE AMINO TRANSFERASE 20 IU/L (15-46); BILIRUBIN,INDIRECT 0.3 mg/dl (0-1.1); BILIRUBIN,TOTAL 0.3 mg/dl (0.2-1.3); BLOOD UREA NITROGEN 2 mg/dl (7-20); CALCIUM 9.8 mg/dl (8.4-10.2); CARBON DIOXIDE 31 mmol/L (21-31); CHLORIDE 104 mmol/L (97-110); GLUCOSE 111 mg/dl (70-220); POTASSIUM 3.6 mmol/L (3.5-5.1); SODIUM 140 mmol/L (135-144); TOTAL PROTEIN 6.7 g/dl (6.1-8.1)
[2018-07-23] MEDS: CREON (24K-76K-120K) 1 CAP PO ×2 (07:57→11:56)
[2018-07-23] MEDS: NICOTINE (14 MG/24 HR) PATCH TRANSDERM (07:57)
[2019-07-19] MEDS ORDERED: LIDOCAINE 2% (SDV) 5 ML INJ (07:00)
[2019-07-19] MEDS ORDERED: CEFAZOLIN 1 GM INJ (07:00)
== END 2018-07-23 18:26 | disposition home or self-care (01) | DRG 438 ==
LOC: 6WM 07-18 04:45 → E/R 12:17 → PP2 15:39
PROC: 0F798DZ Dilation of Common Bile Duct with Intraluminal Device, Via Natural or Artificial Opening Endoscopic (ICD-10-PCS; principal; 2018-07-19 11:30)
PROC: BF10YZZ Fluoroscopy of Bile Ducts using Other Contrast (ICD-10-PCS; 2018-07-19 11:30)
DX: K85.90 Acute pancreatitis without necrosis or infection, unspecified (principal); K83.1 Obstruction of bile duct; Z68.1 Body mass index [BMI] 19.9 or less, adult; K21.9 Gastro-esophageal reflux disease without esophagitis; F17.200 Nicotine dependence, unspecified, uncomplicated; R63.4 Abnormal weight loss; E87.6 Hypokalemia; K86.1 Other chronic pancreatitis; Z90.49 Acquired absence of other specified parts of digestive tract; K29.70 Gastritis, unspecified, without bleeding; K29.80 Duodenitis without bleeding
CPT/HCPCS: 36415; 71045; 74176; 74181; 74330; 80048; 80053; 80307; 81001; 81003; 81025; 82105; 82140; 82378; 82962; 83690; 85025; 85610; 86301; 87040; 87086; 96361; 96374; 96375; 99217; 99285-25; G0378

== ENCOUNTER 2018-08-08 08:57 | Day surgery (SDC) | payer OTHER ==
[~2018-08-08 08:57] MED LIST: CEFAZOLIN 2 GM/50 ML (PMX) 50 ML IVPB; ROCURONIUM 50 MG INJ; SOD CHLORIDE 0.9% 1,000 ML IV
[2018-08-08 10:25] LABS: ADD MAN DIFF? NO
[2018-08-08 10:31] LABS: BASOPHIL # 0.1 10^3/ul (0.0-0.1); BASOPHILS % 0.6 % (0.0-2.0); EOSINOPHILS # 0.1 10^3/ul (0.0-0.5); EOSINOPHILS % 1.2 % (0.0-7.0); HEMATOCRIT 41.5 % (37.0-47.0); HEMOGLOBIN 13.6 g/dl (12.0-16.0); LYMPHOCYTES # 2.3 10^3/ul (0.8-2.9); LYMPHOCYTES % 25.1 % (15.0-51.0); MEAN CORPUSCULAR HEMOGLOBIN 32.5 pg (29.0-33.0); MEAN CORPUSCULAR HGB CONC 32.8 g/dl (32.0-37.0); MEAN PLATELET VOLUME 11.3 fl (7.4-10.4); MONOCYTE # 0.4 10^3/ul (0.3-0.9); MONOCYTES % 4.1 % (0.0-11.0); NEUTROPHIL # 6.2 10^3/ul (1.6-7.5); NEUTROPHILS % 68.7 % (39.0-77.0); PLATELET COUNT 267 10^3/UL (140-415); RED BLOOD COUNT 4.19 10^6/ul (4.20-5.40); RED CELL DISTRIBUTION WIDTH 13.4 % (11.5-14.5)
[2018-08-08 10:56] LABS: ALANINE AMINOTRANSFERASE 9 IU/L (13-69); ALBUMIN 4.7 g/dl (3.3-4.9); ALBUMIN/GLOBULIN RATIO 1.06; ALKALINE PHOSPHATASE 96 IU/L (42-121); ANION GAP 15 (8-16); ASPARTATE AMINO TRANSFERASE 41 IU/L (15-46); BILIRUBIN,INDIRECT 0.3 mg/dl (0-1.1); BILIRUBIN,TOTAL 0.3 mg/dl (0.2-1.3); BLOOD UREA NITROGEN 5 mg/dl (7-20); CALCIUM 9.9 mg/dl (8.4-10.2); CARBON DIOXIDE 26 mmol/L (21-31); CHLORIDE 107 mmol/L (97-110); GLUCOSE 97 mg/dl (70-220); POTASSIUM 5.5 mmol/L (3.5-5.1); SODIUM 142 mmol/L (135-144); TOTAL PROTEIN 9.1 g/dl (6.1-8.1)
[2018-08-08] MEDS ORDERED: MEPERIDINE 25 MG INJ IV (12:00)
[2018-08-08] MEDS ORDERED: ONDANSETRON 4 MG INJ IV (12:00)
[2018-08-08] MEDS ORDERED: FENTAnyl 50 MCG/ML VIAL IV ×2 (12:00)
[2018-08-08] MEDS ORDERED: DIPHENHYDRAMINE 50 MG INJ IV (12:00)
[2018-08-08] MEDS ORDERED: LIDOCAINE 2% (SDV) 5 ML INJ (12:43)
[2018-08-08] MEDS ORDERED: PROPOFOL 20 ML (12:43)
[2018-08-08] MEDS ORDERED: FENTAnyl 50 MCG/ML VIAL (12:44)
[2018-08-08] MEDS ORDERED: MIDAZOLAM 1 MG/ML 2 ML INJ (12:44)
[2018-08-08] MEDS ORDERED: ONDANSETRON 4 MG INJ (12:44)
[2018-08-08] MEDS ORDERED: DEXAMETHASONE 4 MG/ML 1 ML INJ (12:44)
[2018-08-08] MEDS ORDERED: SUGAMMADEX SODIUM 200 MG/2 ML VIAL IV (12:45)
[2018-08-08] MEDS ORDERED: CEFAZOLIN 1 GM INJ (12:45)
[2018-08-08] MEDS ORDERED: METOCLOPRAMIDE 10 MG INJ (13:28)
[2018-08-08] MEDS: BUPIVACAINE 0.5%/EPI (SDV) 30 ML INJ (13:32)
[2018-08-08] MEDS ORDERED: ACETAMINOPHEN 1000MG/100ML IV 100 ML (13:35)
[2018-08-08] MEDS ORDERED: KETOROLAC 30 MG INJ (13:40)
[2018-08-08 14:27] LABS: INR 0.82; PROTIME 11.3 Sec (11.9-14.9); PT RATIO 0.9
[2018-08-08] MEDS: HYDROCODONE/APAP (5/325) TAB PO (15:13)
== END 2018-08-08 15:44 | disposition home or self-care (01) ==
LOC: SDS 08:57
DX: L72.0 Epidermal cyst (principal)
CPT/HCPCS: 11406; 71045; 80053; 84703; 85025; 85610; 85730; 88307; 93005

== ENCOUNTER 2018-10-01 20:56 | Inpatient (IN) | payer OTHER ==
[2018-10-02 00:34] LABS: ADD MAN DIFF? NO
[2018-10-02 00:38] LABS: ABNORMAL IP MESSAGE 1; BASOPHIL # 0.1 10^3/ul (0.0-0.1); BASOPHILS % 0.7 % (0.0-2.0); EOSINOPHILS % 0.3 % (0.0-7.0); HEMATOCRIT 41.8 % (37.0-47.0); HEMOGLOBIN 13.8 g/dl (12.0-16.0); LYMPHOCYTES # 5.3 10^3/ul (0.8-2.9); LYMPHOCYTES % 51.2 % (15.0-51.0); MEAN CORPUSCULAR HEMOGLOBIN 31.9 pg (29.0-33.0); MEAN CORPUSCULAR VOLUME 96.8 fl (82.0-101.0); MEAN PLATELET VOLUME 10.5 fl (7.4-10.4); MONOCYTE # 0.4 10^3/ul (0.3-0.9); MONOCYTES % 3.8 % (0.0-11.0); NEUTROPHIL # 4.5 10^3/ul (1.6-7.5); NEUTROPHILS % 43.7 % (39.0-77.0); PLATELET COUNT 304 10^3/UL (140-415); RED BLOOD COUNT 4.32 10^6/ul (4.20-5.40); RED CELL DISTRIBUTION WIDTH 13.7 % (11.5-14.5)
[2018-10-02 00:38] LABS: WHITE BLOOD COUNT 10.4 10^3/ul (4.8-10.8)
[2018-10-02] MEDS: SOD CHLORIDE 0.9% 500 ML IV (00:38)
[2018-10-02 00:39] LABS: POSITIVE DIFF @See below
[2018-10-02 00:58] LABS: ALANINE AMINOTRANSFERASE 18 IU/L (13-69); ALBUMIN 5.1 g/dl (3.3-4.9); ALBUMIN/GLOBULIN RATIO 1.37; ALKALINE PHOSPHATASE 109 IU/L (42-121); ANION GAP 16 (5-13); ASPARTATE AMINO TRANSFERASE 36 IU/L (15-46); BILIRUBIN,INDIRECT 0.2 mg/dl (0-1.1); BILIRUBIN,TOTAL 0.2 mg/dl (0.2-1.3); BLOOD UREA NITROGEN 8 mg/dl (7-20); CALCIUM 9.5 mg/dl (8.4-10.2); CARBON DIOXIDE 25 mmol/L (21-31); CHLORIDE 102 mmol/L (97-110); Estimated GFR > 60 mL/min (>60); GLUCOSE 95 mg/dl (70-220); LIPASE 637 U/L (23-300); POTASSIUM 4.2 mmol/L (3.5-5.1); SODIUM 143 mmol/L (135-144); TOTAL PROTEIN 8.8 g/dl (6.1-8.1)
[2018-10-02] MEDS: ONDANSETRON 4 MG INJ IV ×4 (01:02→20:37)
[2018-10-02] MEDS: morphine 4 MG/ML VIAL IV (01:03)
[2018-10-02] MEDS: HYDROmorphONE 1 MG/ML SYG IV (01:29)
[2018-10-02 03:57] LABS: ADD UMIC NO; UR ASCORBIC ACID 40 mg/dL (NEGATIVE); UR BILIRUBIN (Dip) NEGATIVE (NEGATIVE); UR BLOOD (Dip) NEGATIVE (NEGATIVE); UR CLARITY CLEAR (CLEAR); UR COLOR YELLOW (YELLOW); UR GLUCOSE (Dip) NEGATIVE (NEGATIVE); UR KETONES (Dip) NEGATIVE (NEGATIVE); UR LEUKOCYTE ESTERASE (Dip) NEGATIVE Leu/ul (NEGATIVE); UR NITRITE (Dip) NEGATIVE (NEGATIVE); UR SPECIFIC GRAVITY (Dip) 1.013 (1.003-1.030); UR TOTAL PROTEIN (Dip) NEGATIVE (NEGATIVE); UR UROBILINOGEN (Dip) NEGATIVE (NEGATIVE)
[2018-10-02] MEDS: D5W-0.45 NACL + KCL 20 MEQ 1,000 ML IV ×3 (06:49→23:00)
[2018-10-02] MEDS: HYDROmorphONE 2 MG/ML SYG IV ×4 (06:49→20:37)
[2018-10-02] MEDS: PANTOPRAZOLE 40 MG INJ IV (09:03)
[2018-10-02] MEDS: NICOTINE (14 MG/24 HR) PATCH TRANSDERM (09:04)
[2018-10-02] MEDS: LORAZEPAM 2 MG INJ IV ×2 (09:32→18:24)
[2018-10-03] MEDS: HYDROmorphONE 2 MG/ML SYG IV ×6 (00:38→23:00)
[2018-10-03] MEDS: LORAZEPAM 2 MG INJ IV ×3 (01:05→19:58)
[2018-10-03] MEDS: ONDANSETRON 4 MG INJ IV ×2 (02:37→09:20)
[2018-10-03] MEDS: D5W-0.45 NACL + KCL 20 MEQ 1,000 ML IV ×3 (02:52→16:48)
[2018-10-03] MEDS: PANTOPRAZOLE 40 MG INJ IV (05:08)
[2018-10-03] MEDS ORDERED: IOHEXOL 300MG/ML 30 ML BTL (08:56)
[2018-10-03] MEDS: NICOTINE (14 MG/24 HR) PATCH TRANSDERM ×2 (09:00→17:37)
[2018-10-03] MEDS ORDERED: OXYCODONE/ACETAMINOPHEN (5/325) TAB PO ×2 (09:00)
[2018-10-03] MEDS ORDERED: morphine (1 MG/ML) 10ML SYRINGE IV ×2 (09:00)
[2018-10-03] MEDS ORDERED: MEPERIDINE 25 MG INJ IV (09:00)
[2018-10-03] MEDS ORDERED: DIPHENHYDRAMINE 50 MG INJ IV (09:00)
[2018-10-03] MEDS ORDERED: FENTAnyl 50 MCG/ML VIAL IV ×2 (09:00)
[2018-10-03] MEDS ORDERED: ALBUTEROL 0.083% (NEB) 2.5 MG/3 ML AMP HHN (09:00)
[2018-10-03] MEDS ORDERED: ONDANSETRON 4 MG INJ IV (09:00)
[2018-10-03] MEDS ORDERED: HYDROmorphONE 1 MG/5 ML IV SYRINGE IV ×2 (09:00)
[2018-10-03] MEDS ORDERED: LABETALOL HCL 20MG INJ IV (09:00)
[2018-10-03] MEDS ORDERED: MIDAZOLAM 1 MG/ML 2 ML INJ (09:45)
[2018-10-03] MEDS ORDERED: PROPOFOL 20 ML (10:04)
[2018-10-03] MEDS ORDERED: SUCCINYLCHOLINE CHLORIDE 100 MG/5 ML SYG IV (10:04)
[2018-10-03] MEDS ORDERED: CIPROFLOXACIN 400MG/D5W 200 ML (10:04)
[2018-10-03] MEDS ORDERED: LIDOCAINE 2% (SDV) 5 ML INJ (10:04)
[2018-10-03] MEDS ORDERED: FAMOTIDINE 20 MG INJ (10:09)
[2018-10-03] MEDS ORDERED: DEXAMETHASONE 4 MG/ML 1 ML INJ (10:09)
[2018-10-03] MEDS ORDERED: ONDANSETRON 4 MG INJ (10:09)
[2018-10-03 11:15] LABS: ADD MAN DIFF? NO
[2018-10-03 11:21] LABS: WHITE BLOOD COUNT 7.5 10^3/ul (4.8-10.8)
[2018-10-03 11:21] LABS: BASOPHILS % 0.3 % (0.0-2.0); EOSINOPHILS % 0.3 % (0.0-7.0); HEMATOCRIT 37.1 % (37.0-47.0); HEMOGLOBIN 12.2 g/dl (12.0-16.0); LYMPHOCYTES # 1.6 10^3/ul (0.8-2.9); MEAN CORPUSCULAR HEMOGLOBIN 32.4 pg (29.0-33.0); MEAN CORPUSCULAR HGB CONC 32.9 g/dl (32.0-37.0); MEAN CORPUSCULAR VOLUME 98.4 fl (82.0-101.0); MEAN PLATELET VOLUME 10.4 fl (7.4-10.4); MONOCYTE # 0.5 10^3/ul (0.3-0.9); NEUTROPHIL # 5.4 10^3/ul (1.6-7.5); NEUTROPHILS % 71.9 % (39.0-77.0); PLATELET COUNT 243 10^3/UL (140-415); RED BLOOD COUNT 3.77 10^6/ul (4.20-5.40)
[2018-10-03 11:39] LABS: ALANINE AMINOTRANSFERASE 28 IU/L (13-69); ALBUMIN 4.2 g/dl (3.3-4.9); ALKALINE PHOSPHATASE 100 IU/L (42-121); ANION GAP 8 (5-13); ASPARTATE AMINO TRANSFERASE 82 IU/L (15-46); BILIRUBIN,INDIRECT 0.8 mg/dl (0-1.1); BILIRUBIN,TOTAL 0.8 mg/dl (0.2-1.3); BLOOD UREA NITROGEN 3 mg/dl (7-20); CARBON DIOXIDE 28 mmol/L (21-31); CHLORIDE 100 mmol/L (97-110); CHOL/HDL RATIO 2.2 RATIO; CHOLESTEROL 162 mg/dl (100-200); CREATININE 0.37 mg/dl (0.44-1.00); Estimated GFR > 60 mL/min (>60); GLUCOSE 150 mg/dl (70-220); HDL CHOLESTEROL 73 mg/dl (37-92); LDL CHOLESTEROL,CALCULATED 68 mg/dl; POTASSIUM 3.8 mmol/L (3.5-5.1); SODIUM 136 mmol/L (135-144); TOTAL PROTEIN 7.7 g/dl (6.1-8.1); TRIGLYCERIDES 105 mg/dl (0-149)
[2018-10-03 12:14] LABS: CARCINOEMBRYONIC ANTIGEN 8.6 ng/ml (0.0-5.0)
[2018-10-03 12:19] LABS: CANCER ANTIGEN 19-9 32.8 U/ml (0.0-37.0)
[2018-10-03] MEDS: METOCLOPRAMIDE 10 MG INJ IV ×3 (13:00→23:59)
[2018-10-04] MEDS: D5W-0.45 NACL + KCL 20 MEQ 1,000 ML IV ×3 (02:27→22:41)
[2018-10-04] MEDS: LORAZEPAM 2 MG INJ IV ×3 (02:27→19:52)
[2018-10-04] MEDS: PANTOPRAZOLE 40 MG INJ IV (05:31)
[2018-10-04] MEDS: METOCLOPRAMIDE 10 MG INJ IV ×4 (05:31→23:19)
[2018-10-04] MEDS: HYDROmorphONE 2 MG/ML SYG IV ×4 (06:04→21:32)
[2018-10-04 06:20] LABS: ADD MAN DIFF? NO
[2018-10-04 06:27] LABS: WHITE BLOOD COUNT 12.4 10^3/ul (4.8-10.8)
[2018-10-04 06:27] LABS: BASOPHILS % 0.3 % (0.0-2.0); EOSINOPHILS % 0.1 % (0.0-7.0); HEMATOCRIT 35.1 % (37.0-47.0); HEMOGLOBIN 11.7 g/dl (12.0-16.0); LYMPHOCYTES # 2.7 10^3/ul (0.8-2.9); LYMPHOCYTES % 21.4 % (15.0-51.0); MEAN CORPUSCULAR HEMOGLOBIN 32.5 pg (29.0-33.0); MEAN CORPUSCULAR HGB CONC 33.3 g/dl (32.0-37.0); MEAN CORPUSCULAR VOLUME 97.5 fl (82.0-101.0); MEAN PLATELET VOLUME 11.2 fl (7.4-10.4); NEUTROPHIL # 8.7 10^3/ul (1.6-7.5); NEUTROPHILS % 69.9 % (39.0-77.0); PLATELET COUNT 250 10^3/UL (140-415); RED CELL DISTRIBUTION WIDTH 12.8 % (11.5-14.5)
[2018-10-04 06:55] LABS: ALANINE AMINOTRANSFERASE 41 IU/L (13-69); ALBUMIN/GLOBULIN RATIO 1.37; ALKALINE PHOSPHATASE 106 IU/L (42-121); ANION GAP 11 (5-13); ASPARTATE AMINO TRANSFERASE 93 IU/L (15-46); BILIRUBIN,INDIRECT 0.5 mg/dl (0-1.1); BILIRUBIN,TOTAL 0.5 mg/dl (0.2-1.3); CALCIUM 9.1 mg/dl (8.4-10.2); CARBON DIOXIDE 28 mmol/L (21-31); CHLORIDE 101 mmol/L (97-110); CREATININE 0.36 mg/dl (0.44-1.00); Estimated GFR > 60 mL/min (>60); GLUCOSE 155 mg/dl (70-220); POTASSIUM 3.8 mmol/L (3.5-5.1); SODIUM 140 mmol/L (135-144); TOTAL PROTEIN 6.9 g/dl (6.1-8.1)
[2018-10-04 07:03] LABS: BLOOD UREA NITROGEN < 2 mg/dl (7-20)
[2018-10-04] MEDS: ONDANSETRON 4 MG INJ IV (09:11)
[2018-10-04] MEDS: NICOTINE (14 MG/24 HR) PATCH TRANSDERM (09:13)
[2018-10-05] MEDS: HYDROmorphONE 2 MG/ML SYG IV ×6 (01:58→23:17)
[2018-10-05] MEDS: ONDANSETRON 4 MG INJ IV ×2 (02:06→10:24)
[2018-10-05] MEDS: LORAZEPAM 2 MG INJ IV ×3 (05:14→21:51)
[2018-10-05] MEDS: PANTOPRAZOLE 40 MG INJ IV (05:22)
[2018-10-05] MEDS: METOCLOPRAMIDE 10 MG INJ IV ×3 (05:22→17:28)
[2018-10-05] MEDS: D5W-0.45 NACL + KCL 20 MEQ 1,000 ML IV ×3 (06:19→23:00)
[2018-10-05] MEDS: NICOTINE (14 MG/24 HR) PATCH TRANSDERM (08:44)
[2018-10-06] MEDS: METOCLOPRAMIDE 10 MG INJ IV ×4 (00:08→17:35)
[2018-10-06] MEDS: D5W-0.45 NACL + KCL 20 MEQ 1,000 ML IV ×3 (01:26→18:33)
[2018-10-06] MEDS: HYDROmorphONE 2 MG/ML SYG IV ×5 (03:21→20:32)
[2018-10-06] MEDS: LORAZEPAM 2 MG INJ IV ×3 (04:46→18:55)
[2018-10-06] MEDS: PANTOPRAZOLE 40 MG INJ IV (05:46)
[2018-10-06] MEDS: CREON (24K-76K-120K) 1 CAP PO ×3 (08:09→16:35)
[2018-10-06] MEDS: NICOTINE (14 MG/24 HR) PATCH TRANSDERM (08:09)
[2018-10-06] MEDS: ONDANSETRON 4 MG INJ IV ×2 (08:09→22:13)
[2018-10-06 08:45] LABS: ADD MAN DIFF? NO
[2018-10-06 08:58] LABS: BASOPHIL # 0.1 10^3/ul (0.0-0.1); BASOPHILS % 0.4 % (0.0-2.0); EOSINOPHILS # 0.1 10^3/ul (0.0-0.5); EOSINOPHILS % 0.4 % (0.0-7.0); HEMATOCRIT 39.3 % (37.0-47.0); HEMOGLOBIN 12.7 g/dl (12.0-16.0); LYMPHOCYTES # 3.4 10^3/ul (0.8-2.9); LYMPHOCYTES % 28.4 % (15.0-51.0); MEAN CORPUSCULAR HEMOGLOBIN 32.2 pg (29.0-33.0); MEAN CORPUSCULAR HGB CONC 32.3 g/dl (32.0-37.0); MEAN CORPUSCULAR VOLUME 99.5 fl (82.0-101.0); MEAN PLATELET VOLUME 11.2 fl (7.4-10.4); MONOCYTES % 8.7 % (0.0-11.0); NEUTROPHIL # 7.4 10^3/ul (1.6-7.5); NEUTROPHILS % 61.7 % (39.0-77.0); PLATELET COUNT 283 10^3/UL (140-415); RED BLOOD COUNT 3.95 10^6/ul (4.20-5.40); RED CELL DISTRIBUTION WIDTH 13.2 % (11.5-14.5)
[2018-10-06 09:32] LABS: ALANINE AMINOTRANSFERASE 138 IU/L (13-69); ALBUMIN 4.2 g/dl (3.3-4.9); ALBUMIN/GLOBULIN RATIO 1.05; ALKALINE PHOSPHATASE 121 IU/L (42-121); ANION GAP 8 (5-13); ASPARTATE AMINO TRANSFERASE 105 IU/L (15-46); BILIRUBIN,INDIRECT 0.6 mg/dl (0-1.1); BILIRUBIN,TOTAL 0.6 mg/dl (0.2-1.3); BLOOD UREA NITROGEN < 2 mg/dl (7-20); CALCIUM 9.9 mg/dl (8.4-10.2); CARBON DIOXIDE 31 mmol/L (21-31); CHLORIDE 101 mmol/L (97-110); CREATININE 0.47 mg/dl (0.44-1.00); Estimated GFR > 60 mL/min (>60); GLUCOSE 118 mg/dl (70-220); SODIUM 140 mmol/L (135-144); TOTAL PROTEIN 8.2 g/dl (6.1-8.1)
[2018-10-07] MEDS: METOCLOPRAMIDE 10 MG INJ IV ×3 (00:17→11:45)
[2018-10-07] MEDS: HYDROmorphONE 2 MG/ML SYG IV ×4 (00:45→13:38)
[2018-10-07] MEDS: LORAZEPAM 2 MG INJ IV ×2 (01:53→08:54)
[2018-10-07] MEDS: D5W-0.45 NACL + KCL 20 MEQ 1,000 ML IV ×2 (02:56→12:40)
[2018-10-07] MEDS: PANTOPRAZOLE 40 MG INJ IV (05:32)
[2018-10-07] MEDS: CREON (24K-76K-120K) 1 CAP PO ×2 (08:00→11:44)
[2018-10-07] MEDS: NICOTINE (14 MG/24 HR) PATCH TRANSDERM (08:01)
[2018-10-07 09:11] LABS: ADD MAN DIFF? NO
[2018-10-07 09:24] LABS: BASOPHIL # 0.1 10^3/ul (0.0-0.1); BASOPHILS % 0.5 % (0.0-2.0); EOSINOPHILS # 0.1 10^3/ul (0.0-0.5); EOSINOPHILS % 0.9 % (0.0-7.0); HEMATOCRIT 40.5 % (37.0-47.0); HEMOGLOBIN 13.1 g/dl (12.0-16.0); LYMPHOCYTES # 2.8 10^3/ul (0.8-2.9); LYMPHOCYTES % 27.4 % (15.0-51.0); MEAN CORPUSCULAR HEMOGLOBIN 31.9 pg (29.0-33.0); MEAN CORPUSCULAR HGB CONC 32.3 g/dl (32.0-37.0); MEAN CORPUSCULAR VOLUME 98.5 fl (82.0-101.0); MEAN PLATELET VOLUME 11.8 fl (7.4-10.4); MONOCYTE # 0.8 10^3/ul (0.3-0.9); MONOCYTES % 7.8 % (0.0-11.0); NEUTROPHIL # 6.4 10^3/ul (1.6-7.5); PLATELET COUNT 234 10^3/UL (140-415); RED BLOOD COUNT 4.11 10^6/ul (4.20-5.40)
[2018-10-07 09:24] LABS: WHITE BLOOD COUNT 10.1 10^3/ul (4.8-10.8)
[2018-10-07 09:43] LABS: ALANINE AMINOTRANSFERASE 87 IU/L (13-69); ALBUMIN 4.5 g/dl (3.3-4.9); ALKALINE PHOSPHATASE 114 IU/L (42-121); ASPARTATE AMINO TRANSFERASE 62 IU/L (15-46); BILIRUBIN,INDIRECT 0.3 mg/dl (0-1.1); BILIRUBIN,TOTAL 0.3 mg/dl (0.2-1.3); TOTAL PROTEIN 7.5 g/dl (6.1-8.1)
== END 2018-10-07 14:50 | disposition home or self-care (01) | DRG 440 ==
LOC: E/R 20:56 → PP2 10-02 02:11
PROC: 0FPB8DZ Removal of Intraluminal Device from Hepatobiliary Duct, Via Natural or Artificial Opening Endoscopic (ICD-10-PCS; principal; 2018-10-03 09:30)
PROC: 0FC98ZZ Extirpation of Matter from Common Bile Duct, Via Natural or Artificial Opening Endoscopic (ICD-10-PCS; 2018-10-03 09:30)
DX: K85.80 Other acute pancreatitis without necrosis or infection (principal); K86.1 Other chronic pancreatitis; Z96.89 Presence of other specified functional implants; Z90.49 Acquired absence of other specified parts of digestive tract; F17.200 Nicotine dependence, unspecified, uncomplicated; G89.29 Other chronic pain; F41.9 Anxiety disorder, unspecified; K21.9 Gastro-esophageal reflux disease without esophagitis; K31.84 Gastroparesis; D64.9 Anemia, unspecified
CPT/HCPCS: 36415; 74018; 74330; 80053; 80061; 80076; 81003; 82378; 83690; 84703; 85025; 86301; 96374; 96375; 99285-25; G0378

== ENCOUNTER 2018-10-08 21:10 | Emergency (ER) | payer OTHER ==
[2018-10-08 22:11] LABS: ADD MAN DIFF? NO
[2018-10-08 22:15] LABS: BASOPHIL # 0.1 10^3/ul (0.0-0.1); BASOPHILS % 0.6 % (0.0-2.0); EOSINOPHILS # 0.2 10^3/ul (0.0-0.5); EOSINOPHILS % 2.1 % (0.0-7.0); HEMATOCRIT 35.7 % (37.0-47.0); HEMOGLOBIN 11.9 g/dl (12.0-16.0); LYMPHOCYTES # 3.4 10^3/ul (0.8-2.9); LYMPHOCYTES % 31.7 % (15.0-51.0); MEAN CORPUSCULAR HEMOGLOBIN 32.5 pg (29.0-33.0); MEAN CORPUSCULAR HGB CONC 33.3 g/dl (32.0-37.0); MEAN CORPUSCULAR VOLUME 97.5 fl (82.0-101.0); MONOCYTE # 0.8 10^3/ul (0.3-0.9); MONOCYTES % 7.5 % (0.0-11.0); NEUTROPHIL # 6.1 10^3/ul (1.6-7.5); NEUTROPHILS % 57.9 % (39.0-77.0); PLATELET COUNT 297 10^3/UL (140-415); RED BLOOD COUNT 3.66 10^6/ul (4.20-5.40); RED CELL DISTRIBUTION WIDTH 12.8 % (11.5-14.5)
[2018-10-08 22:15] LABS: WHITE BLOOD COUNT 10.6 10^3/ul (4.8-10.8)
[2018-10-08 22:35] LABS: ALANINE AMINOTRANSFERASE 53 IU/L (13-69); ALBUMIN 4.1 g/dl (3.3-4.9); ALBUMIN/GLOBULIN RATIO 1.05; ALKALINE PHOSPHATASE 109 IU/L (42-121); ANION GAP 9 (5-13); ASPARTATE AMINO TRANSFERASE 28 IU/L (15-46); BILIRUBIN,INDIRECT 0.2 mg/dl (0-1.1); BILIRUBIN,TOTAL 0.2 mg/dl (0.2-1.3); BLOOD UREA NITROGEN 5 mg/dl (7-20); CALCIUM 9.7 mg/dl (8.4-10.2); CARBON DIOXIDE 28 mmol/L (21-31); CHLORIDE 100 mmol/L (97-110); Estimated GFR > 60 mL/min (>60); GLUCOSE 100 mg/dl (70-220); POTASSIUM 3.6 mmol/L (3.5-5.1); SODIUM 137 mmol/L (135-144)
[2018-10-08 22:47] LABS: B-TYPE NATRIURETIC PEPTIDE 106 PG/ML (0-125); TROPONIN-I < 0.012 ng/ml (0.000-0.120)
[2018-10-08 23:02] LABS: PROTIME 12.2 Sec (11.9-14.9)
[2018-10-08] MEDS: ONDANSETRON 4 MG INJ IV (23:30)
[2018-10-08] MEDS: HYDROmorphONE 0.5 MG/0.5 ML SYG IV (23:30)
== END 2018-10-09 00:38 | disposition home or self-care (01) ==
LOC: E/R 10-09 00:38
DX: K86.0 Alcohol-induced chronic pancreatitis (principal); F17.210 Nicotine dependence, cigarettes, uncomplicated
CPT/HCPCS: 36415; 71045; 80053; 83880; 84484; 85025; 85610; 96374; 96375; 99285-25

== ENCOUNTER 2018-12-16 11:21 | Emergency (ER) | payer OTHER ==
[2018-12-16] MEDS: SOD CHLORIDE 0.9% 1,000 ML IV ×2 (12:26→14:07)
[2018-12-16] MEDS: ONDANSETRON 4 MG INJ IV ×2 (12:26→15:11)
[2018-12-16] MEDS: HYDROmorphONE 1 MG/ML SYG IV ×2 (12:27→15:12)
[2018-12-16 12:36] LABS: ADD MAN DIFF? NO
[2018-12-16 12:38] LABS: WHITE BLOOD COUNT 10.6 10^3/ul (4.8-10.8)
[2018-12-16 12:38] LABS: BASOPHILS % 0.4 % (0.0-2.0); EOSINOPHILS % 0.1 % (0.0-7.0); HEMATOCRIT 40.4 % (37.0-47.0); HEMOGLOBIN 13.3 g/dl (12.0-16.0); LYMPHOCYTES # 2.1 10^3/ul (0.8-2.9); LYMPHOCYTES % 19.5 % (15.0-51.0); MEAN CORPUSCULAR HEMOGLOBIN 32.3 pg (29.0-33.0); MEAN CORPUSCULAR HGB CONC 32.9 g/dl (32.0-37.0); MEAN CORPUSCULAR VOLUME 98.1 fl (82.0-101.0); MONOCYTE # 0.7 10^3/ul (0.3-0.9); MONOCYTES % 6.4 % (0.0-11.0); NEUTROPHIL # 7.8 10^3/ul (1.6-7.5); NEUTROPHILS % 73.1 % (39.0-77.0); PLATELET COUNT 285 10^3/UL (140-415); RED BLOOD COUNT 4.12 10^6/ul (4.20-5.40); RED CELL DISTRIBUTION WIDTH 14.7 % (11.5-14.5)
[2018-12-16 13:51] LABS: ALANINE AMINOTRANSFERASE 150 IU/L (13-69); ALBUMIN 4.3 g/dl (3.3-4.9); ALBUMIN/GLOBULIN RATIO 1.19; ALKALINE PHOSPHATASE 166 IU/L (42-121); ANION GAP 18 (5-13); ASPARTATE AMINO TRANSFERASE 175 IU/L (15-46); BILIRUBIN,INDIRECT 0.9 mg/dl (0-1.1); BILIRUBIN,TOTAL 0.9 mg/dl (0.2-1.3); BLOOD UREA NITROGEN 7 mg/dl (7-20); CALCIUM 9.2 mg/dl (8.4-10.2); CARBON DIOXIDE 18 mmol/L (21-31); CHLORIDE 103 mmol/L (97-110); CREATININE 0.49 mg/dl (0.44-1.00); Estimated GFR > 60 mL/min (>60); GLUCOSE 89 mg/dl (70-220); LIPASE 238 U/L (23-300); POTASSIUM 3.9 mmol/L (3.5-5.1); SODIUM 139 mmol/L (135-144); TOTAL PROTEIN 7.9 g/dl (6.1-8.1)
== END 2018-12-16 18:03 | disposition home or self-care (01) ==
LOC: E/R 11:21
DX: K86.1 Other chronic pancreatitis (principal); F17.210 Nicotine dependence, cigarettes, uncomplicated
CPT/HCPCS: 36415; 80053; 83690; 85025; 96361; 96374; 96375; 96376; 99284-25

== ENCOUNTER 2019-03-02 18:21 | Inpatient (IN) | payer OTHER ==
[2019-03-02] MEDS: morphine 4 MG/ML VIAL IV (21:15)
[2019-03-02] MEDS: ONDANSETRON 4 MG INJ IV (21:15)
[2019-03-02] MEDS: SOD CHLORIDE 0.9% 1,000 ML IV (21:15)
[2019-03-02 21:28] LABS: WHITE BLOOD COUNT 10.1 10^3/ul (4.8-10.8)
[2019-03-02 21:28] LABS: HEMATOCRIT 43.3 % (37.0-47.0); HEMOGLOBIN 14.6 g/dl (12.0-16.0); MEAN CORPUSCULAR HEMOGLOBIN 30.9 pg (29.0-33.0); MEAN CORPUSCULAR HGB CONC 33.7 g/dl (32.0-37.0); MEAN CORPUSCULAR VOLUME 91.5 fl (82.0-101.0); MEAN PLATELET VOLUME 10.3 fl (7.4-10.4); PLATELET COUNT 383 10^3/UL (140-415); RED BLOOD COUNT 4.73 10^6/ul (4.20-5.40); RED CELL DISTRIBUTION WIDTH 13.2 % (11.5-14.5)
[2019-03-02 21:48] LABS: ALANINE AMINOTRANSFERASE 691 IU/L (13-69); ALBUMIN 5.3 g/dl (3.3-4.9); ALBUMIN/GLOBULIN RATIO 1.23; ALKALINE PHOSPHATASE 350 IU/L (42-121); ANION GAP 16 (5-13); BILIRUBIN,INDIRECT 0.6 mg/dl (0-1.1); BILIRUBIN,TOTAL 0.6 mg/dl (0.2-1.3); BLOOD UREA NITROGEN 13 mg/dl (7-20); CALCIUM 11.6 mg/dl (8.4-10.2); CARBON DIOXIDE 27 mmol/L (21-31); CHLORIDE 98 mmol/L (97-110); CREATININE 0.81 mg/dl (0.44-1.00); Estimated GFR > 60 mL/min (>60); GLUCOSE 91 mg/dl (70-220); LIPASE 54 U/L (23-300); SODIUM 141 mmol/L (135-144); TOTAL PROTEIN 9.6 g/dl (6.1-8.1)
[2019-03-02 21:59] LABS: ASPARTATE AMINO TRANSFERASE 1422 IU/L (15-46); POTASSIUM 3.8 mmol/L (3.5-5.1)
[2019-03-02 22:11] LABS: POSITIVE DIFF @See below
[2019-03-02 22:12] LABS: ADD MAN DIFF? YES
[2019-03-02] MEDS ORDERED: ONDANSETRON 4 MG INJ IV (22:30)
[2019-03-02 22:44] LABS: ADD UMIC YES; UR ASCORBIC ACID 40 mg/dL (NEGATIVE); UR BACTERIA FEW /HPF (NONE SEEN); UR BILIRUBIN (Dip) NEGATIVE (NEGATIVE); UR BLOOD (Dip) NEGATIVE (NEGATIVE); UR CLARITY SLIGHTLY CLOUDY (CLEAR); UR COLOR YELLOW (YELLOW); UR GLUCOSE (Dip) NEGATIVE (NEGATIVE); UR KETONES (Dip) TRACE mg/dL (NEGATIVE); UR LEUKOCYTE ESTERASE (Dip) 2+ Leu/ul (NEGATIVE); UR MUCUS FEW /HPF (NONE SEEN); UR NITRITE (Dip) NEGATIVE (NEGATIVE); UR NONSQUAMOUS EPITHELIAL CELL 1 /HPF (NONE SEEN); UR RBC 3 /HPF (0-5); UR SQUAMOUS EPITHELIAL CELL MODERATE /HPF (FEW); UR TOTAL PROTEIN (Dip) NEGATIVE (NEGATIVE); UR UROBILINOGEN (Dip) NEGATIVE (NEGATIVE); UR WBC 51 /HPF (0-5)
[2019-03-02] MEDS: ACETAMINOPHEN 325 MG TAB PO (22:44)
[2019-03-02] MEDS ORDERED: ACETAMINOPHEN 325 MG TAB PO (23:00)
[2019-03-02] MEDS ORDERED: NACL 0.9% 3 ML SYG IV (23:00)
[2019-03-02 23:05] LABS: EOSINOPHILS % (M) 1 % (0-7); LYMPHOCYTES #M 4.6 10^3/ul (0.8-2.9); LYMPHOCYTES % (M) 46 % (15-51); MONOCYTE #M 0.7 10^3/ul (0.3-0.9); MONOCYTES % (M) 7 % (0-11); PLATELET ESTIMATE NORMAL; POLYCHROMASIA 3+ (0-0); SEGMENTED NEUTROPHILS (M) % 46 % (39-77)
[2019-03-02] MEDS: morphine 2 MG INJ IV (23:56)
[2019-03-03] MEDS: ONDANSETRON 4 MG INJ IV ×3 (01:48→15:34)
[2019-03-03] MEDS: SOD CHLORIDE 0.9% 1,000 ML IV ×3 (01:52→14:51)
[2019-03-03] MEDS: HYDROmorphONE 1 MG/ML SYG IV ×5 (02:59→20:54)
[2019-03-03 05:52] LABS: ADD MAN DIFF? NO
[2019-03-03 05:59] LABS: BASOPHIL # 0.1 10^3/ul (0.0-0.1); BASOPHILS % 0.6 % (0.0-2.0); EOSINOPHILS % 0.4 % (0.0-7.0); HEMATOCRIT 39.2 % (37.0-47.0); HEMOGLOBIN 13.3 g/dl (12.0-16.0); LYMPHOCYTES # 2.6 10^3/ul (0.8-2.9); MEAN CORPUSCULAR HEMOGLOBIN 31.7 pg (29.0-33.0); MEAN CORPUSCULAR HGB CONC 33.9 g/dl (32.0-37.0); MEAN CORPUSCULAR VOLUME 93.6 fl (82.0-101.0); MEAN PLATELET VOLUME 10.5 fl (7.4-10.4); MONOCYTE # 0.6 10^3/ul (0.3-0.9); MONOCYTES % 8.2 % (0.0-11.0); NEUTROPHIL # 4.4 10^3/ul (1.6-7.5); NEUTROPHILS % 56.5 % (39.0-77.0); PLATELET COUNT 326 10^3/UL (140-415); RED BLOOD COUNT 4.19 10^6/ul (4.20-5.40); RED CELL DISTRIBUTION WIDTH 13.1 % (11.5-14.5)
[2019-03-03 05:59] LABS: WHITE BLOOD COUNT 7.7 10^3/ul (4.8-10.8)
[2019-03-03 06:36] LABS: ALANINE AMINOTRANSFERASE 692 IU/L (13-69); ALBUMIN 4.4 g/dl (3.3-4.9); ALBUMIN/GLOBULIN RATIO 1.25; ALKALINE PHOSPHATASE 322 IU/L (42-121); ANION GAP 14 (5-13); BILIRUBIN,INDIRECT 0.5 mg/dl (0-1.1); BILIRUBIN,TOTAL 1.1 mg/dl (0.2-1.3); BLOOD UREA NITROGEN 11 mg/dl (7-20); CARBON DIOXIDE 27 mmol/L (21-31); CHLORIDE 101 mmol/L (97-110); CREATININE 0.73 mg/dl (0.44-1.00); Estimated GFR > 60 mL/min (>60); GLUCOSE 93 mg/dl (70-220); POTASSIUM 3.3 mmol/L (3.5-5.1); SODIUM 142 mmol/L (135-144); TOTAL PROTEIN 7.9 g/dl (6.1-8.1)
[2019-03-03 07:23] LABS: HEMOGLOBIN A1C 5.4 % (0-5.9)
[2019-03-03 07:34] LABS: ASPARTATE AMINO TRANSFERASE 1392 IU/L (15-46)
[2019-03-03] MEDS: FAMOTIDINE 20 MG INJ IV (09:52)
[2019-03-03] MEDS: ENOXAPARIN 30 MG/0.3 ML SYG SC (10:02)
[2019-03-03] MEDS: DEXTROSE IV (14:28)
[2019-03-03] MEDS: NICOTINE (14 MG/24 HR) PATCH TRANSDERM (14:28)
[2019-03-03] MEDS: PANTOPRAZOLE 40 MG INJ IV (14:28)
[2019-03-03] MEDS: NACL IV (14:28)
[2019-03-03] MEDS: POTASSIUM CHLORIDE IV (14:28)
[2019-03-03] MEDS: LORAZEPAM 0.5 MG TAB PO ×2 (14:28→19:56)
[2019-03-03] MEDS: METOCLOPRAMIDE 10 MG INJ IV (18:48)
[2019-03-03] MEDS ORDERED: FAMOTIDINE 20 MG INJ IV (21:00)
[2019-03-04] MEDS: ONDANSETRON 4 MG INJ IV ×3 (00:08→21:09)
[2019-03-04] MEDS: HYDROmorphONE 1 MG/ML SYG IV ×6 (00:57→21:07)
[2019-03-04] MEDS: POTASSIUM CHLORIDE IV ×2 (04:48→08:48)
[2019-03-04] MEDS: DEXTROSE IV ×2 (04:48→08:48)
[2019-03-04] MEDS: NACL IV ×2 (04:48→08:48)
[2019-03-04] MEDS: PANTOPRAZOLE 40 MG INJ IV (05:05)
[2019-03-04 06:53] LABS: ALANINE AMINOTRANSFERASE 509 IU/L (13-69); ALBUMIN 4.4 g/dl (3.3-4.9); ALBUMIN/GLOBULIN RATIO 1.22; ALKALINE PHOSPHATASE 410 IU/L (42-121); ANION GAP 11 (5-13); ASPARTATE AMINO TRANSFERASE 558 IU/L (15-46); BILIRUBIN,INDIRECT 1.1 mg/dl (0-1.1); BILIRUBIN,TOTAL 1.1 mg/dl (0.2-1.3); BLOOD UREA NITROGEN 4 mg/dl (7-20); CALCIUM 9.9 mg/dl (8.4-10.2); CARBON DIOXIDE 22 mmol/L (21-31); CHLORIDE 106 mmol/L (97-110); CREATININE 0.57 mg/dl (0.44-1.00); Estimated GFR > 60 mL/min (>60); GLUCOSE 126 mg/dl (70-220); SODIUM 139 mmol/L (135-144)
[2019-03-04] MEDS: LORAZEPAM 0.5 MG TAB PO ×2 (08:47→20:25)
[2019-03-04] MEDS: NICOTINE (14 MG/24 HR) PATCH TRANSDERM (08:47)
[2019-03-04] MEDS: ENOXAPARIN 30 MG/0.3 ML SYG SC (08:53)
[2019-03-04] MEDS: METOCLOPRAMIDE 10 MG INJ IV ×2 (09:06→17:16)
[2019-03-05] MEDS: DEXTROSE IV ×3 (00:36→18:50)
[2019-03-05] MEDS: NACL IV ×3 (00:36→18:50)
[2019-03-05] MEDS: POTASSIUM CHLORIDE IV ×3 (00:36→18:50)
[2019-03-05] MEDS: HYDROmorphONE 1 MG/ML SYG IV ×6 (01:37→23:59)
[2019-03-05] MEDS: METOCLOPRAMIDE 10 MG INJ IV ×2 (01:55→15:17)
[2019-03-05] MEDS: PANTOPRAZOLE 40 MG INJ IV (05:41)
[2019-03-05] MEDS: NICOTINE (14 MG/24 HR) PATCH TRANSDERM (08:48)
[2019-03-05] MEDS: ENOXAPARIN 30 MG/0.3 ML SYG SC (08:50)
[2019-03-05] MEDS: ONDANSETRON 4 MG INJ IV ×2 (09:42→22:20)
[2019-03-05] MEDS: LORAZEPAM 0.5 MG TAB PO ×2 (12:46→22:19)
[2019-03-05] MEDS ORDERED: IOHEXOL 300MG/ML 30 ML BTL (16:10)
[2019-03-05] MEDS ORDERED: INDOMETHACIN 50 MG SUPP PR (16:12)
[2019-03-05] MEDS ORDERED: PROPOFOL 100 ML (16:30)
[2019-03-05] MEDS ORDERED: LIDOCAINE 2% (SDV) 5 ML INJ (16:31)
[2019-03-05] MEDS ORDERED: ROCURONIUM 50 MG INJ (16:31)
[2019-03-05] MEDS ORDERED: DEXAMETHASONE 4 MG/ML 5 ML INJ (17:06)
[2019-03-05] MEDS ORDERED: ONDANSETRON 4 MG INJ (17:06)
[2019-03-05] MEDS ORDERED: NEOSTIGMINE 3 MG/3 ML SYRINGE (17:32)
[2019-03-05] MEDS ORDERED: GLYCOPYRROLATE 0.4 MG INJ (17:33)
[2019-03-05] MEDS ORDERED: LABETALOL HCL 20MG INJ IV (18:00)
[2019-03-05] MEDS ORDERED: KETOROLAC 30 MG INJ IV (18:00)
[2019-03-05] MEDS ORDERED: EPHEDrine SULFATE 50 MG/5 ML SYG IV (18:00)
[2019-03-05] MEDS ORDERED: METOCLOPRAMIDE 10 MG INJ IV (18:00)
[2019-03-05] MEDS ORDERED: hydrALAzine 20 MG INJ IV (18:00)
[2019-03-05] MEDS ORDERED: DIPHENHYDRAMINE 50 MG INJ IV (18:00)
[2019-03-05] MEDS ORDERED: MEPERIDINE 25 MG INJ IV (18:00)
[2019-03-05] MEDS ORDERED: OXYCODONE/ACETAMINOPHEN (5/325) TAB PO ×2 (18:00)
[2019-03-05] MEDS ORDERED: ONDANSETRON 4 MG INJ IV (18:00)
[2019-03-05] MEDS ORDERED: ALBUTEROL 0.083% (NEB) 2.5 MG/3 ML AMP HHN (18:00)
[2019-03-05] MEDS ORDERED: FENTAnyl 50 MCG/ML VIAL IV ×2 (18:00)
[2019-03-05] MEDS: FENTAnyl 50 MCG/ML VIAL IV (18:35)
[2019-03-06] MEDS: HYDROmorphONE 1 MG/ML SYG IV ×5 (03:44→19:49)
[2019-03-06] MEDS: ONDANSETRON 4 MG INJ IV (03:50)
[2019-03-06] MEDS: LORAZEPAM 0.5 MG TAB PO ×3 (04:27→21:15)
[2019-03-06] MEDS: PANTOPRAZOLE 40 MG INJ IV (05:33)
[2019-03-06] MEDS: NICOTINE (14 MG/24 HR) PATCH TRANSDERM (08:06)
[2019-03-06] MEDS: METOCLOPRAMIDE 10 MG INJ IV ×2 (08:06→15:49)
[2019-03-06] MEDS: ENOXAPARIN 30 MG/0.3 ML SYG SC (08:10)
[2019-03-06] MEDS: DEXTROSE IV (10:32)
[2019-03-06] MEDS: POTASSIUM CHLORIDE IV (10:32)
[2019-03-06] MEDS: NACL IV (10:32)
[2019-03-06] MEDS: CIPROFLOXACIN 400MG/D5W 200 ML IVPB ×2 (11:46→21:15)
[2019-03-06] MEDS: HYDROCODONE/APAP (5/325) TAB PO ×2 (17:49→22:16)
[2019-03-07] MEDS: DEXTROSE IV ×2 (01:15→20:41)
[2019-03-07] MEDS: POTASSIUM CHLORIDE IV ×2 (01:15→20:41)
[2019-03-07] MEDS: NACL IV ×2 (01:15→20:41)
[2019-03-07] MEDS: HYDROmorphONE 1 MG/ML SYG IV ×6 (01:15→22:23)
[2019-03-07] MEDS: ONDANSETRON 4 MG INJ IV ×2 (01:19→22:24)
[2019-03-07] MEDS: PANTOPRAZOLE 40 MG INJ IV (05:24)
[2019-03-07] MEDS: HYDROCODONE/APAP (5/325) TAB PO ×4 (06:21→20:37)
[2019-03-07 06:22] LABS: WHITE BLOOD COUNT 7.3 10^3/ul (4.8-10.8)
[2019-03-07 06:22] LABS: HEMATOCRIT 39.2 % (37.0-47.0); HEMOGLOBIN 12.8 g/dl (12.0-16.0); MEAN CORPUSCULAR HEMOGLOBIN 30.7 pg (29.0-33.0); MEAN CORPUSCULAR HGB CONC 32.7 g/dl (32.0-37.0); MEAN PLATELET VOLUME 11.2 fl (7.4-10.4); PLATELET COUNT 298 10^3/UL (140-415); RED BLOOD COUNT 4.17 10^6/ul (4.20-5.40); RED CELL DISTRIBUTION WIDTH 13.3 % (11.5-14.5)
[2019-03-07 06:43] LABS: ALANINE AMINOTRANSFERASE 192 IU/L (13-69); ALBUMIN 4.2 g/dl (3.3-4.9); ALBUMIN/GLOBULIN RATIO 1.23; ALKALINE PHOSPHATASE 245 IU/L (42-121); ANION GAP 11 (5-13); ASPARTATE AMINO TRANSFERASE 75 IU/L (15-46); BILIRUBIN,INDIRECT 0.4 mg/dl (0-1.1); BILIRUBIN,TOTAL 0.4 mg/dl (0.2-1.3); BLOOD UREA NITROGEN 4 mg/dl (7-20); CALCIUM 10.1 mg/dl (8.4-10.2); CARBON DIOXIDE 26 mmol/L (21-31); CHLORIDE 103 mmol/L (97-110); CREATININE 0.57 mg/dl (0.44-1.00); Estimated GFR > 60 mL/min (>60); GLUCOSE 125 mg/dl (70-220); SODIUM 140 mmol/L (135-144); TOTAL PROTEIN 7.6 g/dl (6.1-8.1)
[2019-03-07 06:54] LABS: ADD MAN DIFF? YES
[2019-03-07] MEDS: NICOTINE (14 MG/24 HR) PATCH TRANSDERM (08:22)
[2019-03-07] MEDS: CIPROFLOXACIN 400MG/D5W 200 ML IVPB ×2 (08:23→20:38)
[2019-03-07] MEDS: LORAZEPAM 0.5 MG TAB PO (08:23)
[2019-03-07] MEDS: ENOXAPARIN 30 MG/0.3 ML SYG SC (08:27)
[2019-03-07] MEDS: METOCLOPRAMIDE 10 MG INJ IV ×2 (09:16→15:20)
[2019-03-07 09:35] LABS: BASOPHILS % (M) 1 % (0-2); EOSINOPHILS % (M) 3 % (0-7); LYMPHOCYTES #M 3.7 10^3/ul (0.8-2.9); LYMPHOCYTES % (M) 52 % (15-51); MONOCYTE #M 0.2 10^3/ul (0.3-0.9); MONOCYTES % (M) 4 % (0-11); PLATELET ESTIMATE NORMAL; REACTIVE LYMPHOCYTES% (M) 1 % (0-0); SEGMENTED NEUTROPHILS (M) % 39 % (39-77); SMUDGE%M 30 % (0-0)
[2019-03-08] MEDS: HYDROCODONE/APAP (5/325) TAB PO ×4 (00:59→20:51)
[2019-03-08] MEDS: HYDROmorphONE 1 MG/ML SYG IV ×5 (03:19→23:03)
[2019-03-08] MEDS: PANTOPRAZOLE 40 MG INJ IV (05:47)
[2019-03-08] MEDS: DEXTROSE IV ×2 (08:54→15:41)
[2019-03-08] MEDS: POTASSIUM CHLORIDE IV ×2 (08:54→15:41)
[2019-03-08] MEDS: NACL IV ×2 (08:54→15:41)
[2019-03-08] MEDS: NICOTINE (14 MG/24 HR) PATCH TRANSDERM (09:04)
[2019-03-08] MEDS: ONDANSETRON 4 MG INJ IV ×3 (09:04→23:03)
[2019-03-08] MEDS: CIPROFLOXACIN 400MG/D5W 200 ML IVPB ×2 (09:05→20:51)
[2019-03-08] MEDS: ENOXAPARIN 30 MG/0.3 ML SYG SC (09:08)
[2019-03-08] MEDS: LORAZEPAM 0.5 MG TAB PO (10:41)
[2019-03-08] MEDS: CREON (24K-76K-120K) 1 CAP PO (21:21)
[2019-03-09] MEDS: HYDROCODONE/APAP (5/325) TAB PO ×2 (01:48→17:39)
[2019-03-09] MEDS: HYDROmorphONE 1 MG/ML SYG IV ×4 (06:29→21:01)
[2019-03-09] MEDS: PANTOPRAZOLE 40 MG INJ IV (06:29)
[2019-03-09] MEDS: POTASSIUM CHLORIDE IV (06:30)
[2019-03-09] MEDS: DEXTROSE IV (06:30)
[2019-03-09] MEDS: NACL IV (06:30)
[2019-03-09] MEDS: NICOTINE (14 MG/24 HR) PATCH TRANSDERM (08:03)
[2019-03-09] MEDS: CIPROFLOXACIN 400MG/D5W 200 ML IVPB ×2 (08:04→21:01)
[2019-03-09] MEDS: ONDANSETRON 4 MG INJ IV ×3 (08:04→21:01)
[2019-03-09] MEDS: CREON (24K-76K-120K) 1 CAP PO ×3 (08:04→17:28)
[2019-03-09] MEDS: ENOXAPARIN 30 MG/0.3 ML SYG SC (08:08)
[2019-03-09] MEDS: LORAZEPAM 0.5 MG TAB PO ×2 (08:11→23:43)
[2019-03-09 10:04] LABS: ALANINE AMINOTRANSFERASE 115 IU/L (13-69); ALBUMIN 4.4 g/dl (3.3-4.9); ALKALINE PHOSPHATASE 208 IU/L (42-121); ASPARTATE AMINO TRANSFERASE 38 IU/L (15-46); BILIRUBIN,INDIRECT 0.3 mg/dl (0-1.1); BILIRUBIN,TOTAL 0.3 mg/dl (0.2-1.3); TOTAL PROTEIN 8.2 g/dl (6.1-8.1)
[2019-03-10] MEDS: POTASSIUM CHLORIDE IV ×2 (01:26→16:03)
[2019-03-10] MEDS: NACL IV ×2 (01:26→16:03)
[2019-03-10] MEDS: DEXTROSE IV ×2 (01:26→16:03)
[2019-03-10] MEDS: HYDROCODONE/APAP (5/325) TAB PO ×4 (01:40→23:29)
[2019-03-10] MEDS: PANTOPRAZOLE 40 MG INJ IV (05:39)
[2019-03-10] MEDS: HYDROmorphONE 1 MG/ML SYG IV ×3 (06:39→21:38)
[2019-03-10] MEDS: ONDANSETRON 4 MG INJ IV ×3 (06:44→21:37)
[2019-03-10] MEDS: CREON (24K-76K-120K) 1 CAP PO ×3 (07:54→17:50)
[2019-03-10] MEDS: CIPROFLOXACIN 400MG/D5W 200 ML IVPB ×2 (08:00→21:37)
[2019-03-10] MEDS: NICOTINE (14 MG/24 HR) PATCH TRANSDERM (08:00)
[2019-03-10] MEDS: ENOXAPARIN 30 MG/0.3 ML SYG SC (08:01)
[2019-03-10] MEDS: LORAZEPAM 0.5 MG TAB PO (08:12)
[2019-03-10] MEDS: METOCLOPRAMIDE 10 MG INJ IV (16:02)
[2019-03-10] MEDS: AMOXICILLIN 250 MG CAP PO (23:28)
[2019-03-11] MEDS: LORAZEPAM 0.5 MG TAB PO ×2 (01:17→20:27)
[2019-03-11 05:56] LABS: ADD MAN DIFF? NO
[2019-03-11 06:08] LABS: WHITE BLOOD COUNT 5.6 10^3/ul (4.8-10.8)
[2019-03-11 06:08] LABS: BASOPHILS % 0.7 % (0.0-2.0); EOSINOPHILS # 0.2 10^3/ul (0.0-0.5); EOSINOPHILS % 2.7 % (0.0-7.0); HEMOGLOBIN 12.1 g/dl (12.0-16.0); LYMPHOCYTES # 2.6 10^3/ul (0.8-2.9); MEAN CORPUSCULAR HEMOGLOBIN 31.4 pg (29.0-33.0); MEAN CORPUSCULAR HGB CONC 33.6 g/dl (32.0-37.0); MEAN CORPUSCULAR VOLUME 93.5 fl (82.0-101.0); MEAN PLATELET VOLUME 11.2 fl (7.4-10.4); MONOCYTE # 0.6 10^3/ul (0.3-0.9); MONOCYTES % 10.2 % (0.0-11.0); NEUTROPHIL # 2.2 10^3/ul (1.6-7.5); NEUTROPHILS % 38.9 % (39.0-77.0); PLATELET COUNT 269 10^3/UL (140-415); RED BLOOD COUNT 3.85 10^6/ul (4.20-5.40)
[2019-03-11] MEDS: HYDROmorphONE 1 MG/ML SYG IV ×3 (06:20→15:49)
[2019-03-11] MEDS: PANTOPRAZOLE 40 MG INJ IV (06:20)
[2019-03-11] MEDS: ONDANSETRON 4 MG INJ IV ×3 (06:20→15:49)
[2019-03-11] MEDS: AMOXICILLIN 250 MG CAP PO ×2 (06:20→12:51)
[2019-03-11 06:44] LABS: ANION GAP 8 (5-13); BLOOD UREA NITROGEN 6 mg/dl (7-20); CALCIUM 10.2 mg/dl (8.4-10.2); CARBON DIOXIDE 27 mmol/L (21-31); CHLORIDE 107 mmol/L (97-110); CREATININE 0.58 mg/dl (0.44-1.00); Estimated GFR > 60 mL/min (>60); GLUCOSE 122 mg/dl (70-220); POTASSIUM 3.9 mmol/L (3.5-5.1); SODIUM 142 mmol/L (135-144)
[2019-03-11] MEDS: CREON (24K-76K-120K) 1 CAP PO ×3 (08:35→18:20)
[2019-03-11] MEDS: CIPROFLOXACIN 400MG/D5W 200 ML IVPB ×2 (08:36→20:31)
[2019-03-11] MEDS: DEXTROSE IV (08:36)
[2019-03-11] MEDS: POTASSIUM CHLORIDE IV (08:36)
[2019-03-11] MEDS: NACL IV (08:36)
[2019-03-11] MEDS: NICOTINE (14 MG/24 HR) PATCH TRANSDERM (08:38)
[2019-03-11] MEDS: ENOXAPARIN 30 MG/0.3 ML SYG SC (08:43)
[2019-03-11] MEDS: HYDROCODONE/APAP (5/325) TAB PO ×4 (09:00→22:39)
[2019-03-12] MEDS: ONDANSETRON 4 MG INJ IV ×4 (02:26→22:18)
[2019-03-12] MEDS: HYDROCODONE/APAP (5/325) TAB PO ×4 (02:36→20:40)
[2019-03-12] MEDS: POTASSIUM CHLORIDE IV ×3 (02:41→22:57)
[2019-03-12] MEDS: NACL IV ×3 (02:41→22:57)
[2019-03-12] MEDS: DEXTROSE IV ×3 (02:41→22:57)
[2019-03-12] MEDS: METOCLOPRAMIDE 10 MG INJ IV (05:21)
[2019-03-12] MEDS: HYDROmorphONE 1 MG/ML SYG IV ×4 (05:21→22:18)
[2019-03-12] MEDS: PANTOPRAZOLE 40 MG INJ IV (05:24)
[2019-03-12 05:39] LABS: ADD MAN DIFF? NO
[2019-03-12 05:51] LABS: BASOPHILS % 0.8 % (0.0-2.0); EOSINOPHILS # 0.2 10^3/ul (0.0-0.5); EOSINOPHILS % 3.2 % (0.0-7.0); HEMATOCRIT 39.2 % (37.0-47.0); LYMPHOCYTES # 2.3 10^3/ul (0.8-2.9); LYMPHOCYTES % 48.5 % (15.0-51.0); MEAN CORPUSCULAR HEMOGLOBIN 31.1 pg (29.0-33.0); MEAN CORPUSCULAR HGB CONC 33.2 g/dl (32.0-37.0); MEAN CORPUSCULAR VOLUME 93.8 fl (82.0-101.0); MEAN PLATELET VOLUME 11.2 fl (7.4-10.4); MONOCYTE # 0.5 10^3/ul (0.3-0.9); NEUTROPHIL # 1.8 10^3/ul (1.6-7.5); NEUTROPHILS % 37.1 % (39.0-77.0); PLATELET COUNT 283 10^3/UL (140-415); RED BLOOD COUNT 4.18 10^6/ul (4.20-5.40); RED CELL DISTRIBUTION WIDTH 13.1 % (11.5-14.5)
[2019-03-12 05:51] LABS: WHITE BLOOD COUNT 4.7 10^3/ul (4.8-10.8)
[2019-03-12 06:22] LABS: ANION GAP 10 (5-13); BLOOD UREA NITROGEN 4 mg/dl (7-20); CARBON DIOXIDE 26 mmol/L (21-31); CHLORIDE 105 mmol/L (97-110); CREATININE 0.55 mg/dl (0.44-1.00); Estimated GFR > 60 mL/min (>60); GLUCOSE 127 mg/dl (70-220); SODIUM 141 mmol/L (135-144)
[2019-03-12] MEDS: CIPROFLOXACIN 400MG/D5W 200 ML IVPB ×2 (08:25→20:40)
[2019-03-12] MEDS: NICOTINE (14 MG/24 HR) PATCH TRANSDERM (08:25)
[2019-03-12] MEDS: CREON (24K-76K-120K) 1 CAP PO ×3 (08:25→17:45)
[2019-03-12] MEDS: ENOXAPARIN 30 MG/0.3 ML SYG SC (08:27)
[2019-03-12] MEDS: LORAZEPAM 0.5 MG TAB PO (16:16)
[2019-03-13] MEDS: HYDROCODONE/APAP (5/325) TAB PO ×4 (00:48→18:59)
[2019-03-13] MEDS: POTASSIUM CHLORIDE IV ×3 (02:24→17:17)
[2019-03-13] MEDS: NACL IV ×3 (02:24→17:17)
[2019-03-13] MEDS: DEXTROSE IV ×3 (02:24→17:17)
[2019-03-13] MEDS: HYDROmorphONE 1 MG/ML SYG IV ×4 (05:12→21:12)
[2019-03-13] MEDS: PANTOPRAZOLE 40 MG INJ IV ×2 (05:12→21:03)
[2019-03-13] MEDS: ONDANSETRON 4 MG INJ IV ×3 (05:12→21:12)
[2019-03-13 05:54] LABS: ADD MAN DIFF? NO
[2019-03-13 05:57] LABS: BASOPHILS % 0.8 % (0.0-2.0); EOSINOPHILS # 0.2 10^3/ul (0.0-0.5); EOSINOPHILS % 2.9 % (0.0-7.0); HEMATOCRIT 37.5 % (37.0-47.0); HEMOGLOBIN 12.5 g/dl (12.0-16.0); LYMPHOCYTES # 2.4 10^3/ul (0.8-2.9); LYMPHOCYTES % 46.2 % (15.0-51.0); MEAN CORPUSCULAR HGB CONC 33.3 g/dl (32.0-37.0); MEAN CORPUSCULAR VOLUME 93.1 fl (82.0-101.0); MEAN PLATELET VOLUME 11.3 fl (7.4-10.4); MONOCYTE # 0.5 10^3/ul (0.3-0.9); MONOCYTES % 8.9 % (0.0-11.0); NEUTROPHIL # 2.1 10^3/ul (1.6-7.5); NEUTROPHILS % 40.8 % (39.0-77.0); PLATELET COUNT 299 10^3/UL (140-415); RED BLOOD COUNT 4.03 10^6/ul (4.20-5.40); RED CELL DISTRIBUTION WIDTH 12.9 % (11.5-14.5)
[2019-03-13 05:57] LABS: WHITE BLOOD COUNT 5.2 10^3/ul (4.8-10.8)
[2019-03-13 06:32] LABS: ANION GAP 10 (5-13); BLOOD UREA NITROGEN 4 mg/dl (7-20); CALCIUM 9.9 mg/dl (8.4-10.2); CARBON DIOXIDE 27 mmol/L (21-31); CHLORIDE 104 mmol/L (97-110); CREATININE 0.57 mg/dl (0.44-1.00); Estimated GFR > 60 mL/min (>60); GLUCOSE 126 mg/dl (70-220); POTASSIUM 3.9 mmol/L (3.5-5.1); SODIUM 141 mmol/L (135-144)
[2019-03-13] MEDS: ENOXAPARIN 30 MG/0.3 ML SYG SC (08:50)
[2019-03-13] MEDS: CREON (24K-76K-120K) 1 CAP PO ×3 (08:50→17:16)
[2019-03-13] MEDS: NICOTINE (14 MG/24 HR) PATCH TRANSDERM (08:51)
[2019-03-13] MEDS ORDERED: GUAIFENESIN/CODEINE 5ML CUP PO (16:30)
[2019-03-13] MEDS: LORAZEPAM 0.5 MG TAB PO (17:16)
[2019-03-14] MEDS: HYDROmorphONE 1 MG/ML SYG IV ×4 (01:36→16:07)
[2019-03-14] MEDS: HYDROCODONE/APAP (5/325) TAB PO ×4 (03:45→18:21)
[2019-03-14] MEDS: NACL IV ×3 (04:55→19:18)
[2019-03-14] MEDS: POTASSIUM CHLORIDE IV ×3 (04:55→19:18)
[2019-03-14] MEDS: DEXTROSE IV ×3 (04:55→19:18)
[2019-03-14 05:36] LABS: ALANINE AMINOTRANSFERASE 42 IU/L (13-69); ALBUMIN 3.8 g/dl (3.3-4.9); ALBUMIN/GLOBULIN RATIO 1.15; ALKALINE PHOSPHATASE 121 IU/L (42-121); ANION GAP 10 (5-13); ASPARTATE AMINO TRANSFERASE 30 IU/L (15-46); BILIRUBIN,INDIRECT 0.1 mg/dl (0-1.1); BILIRUBIN,TOTAL 0.1 mg/dl (0.2-1.3); BLOOD UREA NITROGEN 5 mg/dl (7-20); CARBON DIOXIDE 23 mmol/L (21-31); CHLORIDE 106 mmol/L (97-110); CREATININE 0.53 mg/dl (0.44-1.00); Estimated GFR > 60 mL/min (>60); GLUCOSE 165 mg/dl (70-220); POTASSIUM 4.2 mmol/L (3.5-5.1); SODIUM 139 mmol/L (135-144); TOTAL PROTEIN 7.1 g/dl (6.1-8.1)
[2019-03-14] MEDS: ONDANSETRON 4 MG INJ IV ×3 (05:58→20:56)
[2019-03-14] MEDS: PANTOPRAZOLE 40 MG INJ IV ×2 (08:40→20:56)
[2019-03-14] MEDS: CREON (24K-76K-120K) 1 CAP PO ×3 (08:40→18:14)
[2019-03-14] MEDS: NICOTINE (14 MG/24 HR) PATCH TRANSDERM (08:41)
[2019-03-14] MEDS: ENOXAPARIN 30 MG/0.3 ML SYG SC (08:43)
[2019-03-14] MEDS: LORAZEPAM 0.5 MG TAB PO (20:56)
[2019-03-15] MEDS: HYDROCODONE/APAP (5/325) TAB PO ×4 (00:25→15:04)
[2019-03-15] MEDS: ONDANSETRON 4 MG INJ IV (08:55)
[2019-03-15] MEDS: PANTOPRAZOLE 40 MG INJ IV (08:55)
[2019-03-15] MEDS: CREON (24K-76K-120K) 1 CAP PO ×3 (08:55→17:33)
[2019-03-15] MEDS: LORAZEPAM 0.5 MG TAB PO (09:00)
[2019-03-15] MEDS: ENOXAPARIN 30 MG/0.3 ML SYG SC (09:00)
[2019-03-15] MEDS: NICOTINE (14 MG/24 HR) PATCH TRANSDERM (09:01)
[2019-03-15] MEDS: NACL IV ×2 (09:08→12:30)
[2019-03-15] MEDS: POTASSIUM CHLORIDE IV ×2 (09:08→12:30)
[2019-03-15] MEDS: DEXTROSE IV ×2 (09:08→12:30)
== END 2019-03-15 19:02 | disposition home or self-care (01) | DRG 445 ==
LOC: 2NE 22:26 → E/R 18:21
PROC: 0FC98ZZ Extirpation of Matter from Common Bile Duct, Via Natural or Artificial Opening Endoscopic (ICD-10-PCS; principal; 2019-03-05 16:00)
PROC: 0F798DZ Dilation of Common Bile Duct with Intraluminal Device, Via Natural or Artificial Opening Endoscopic (ICD-10-PCS; 2019-03-05 16:00)
DX: K80.31 Calculus of bile duct with cholangitis, unspecified, with obstruction (principal); K86.1 Other chronic pancreatitis; K21.9 Gastro-esophageal reflux disease without esophagitis; F41.9 Anxiety disorder, unspecified; F17.200 Nicotine dependence, unspecified, uncomplicated; R74.0 Nonspecific elevation of levels of transaminase and lactic acid dehydrogenase [LDH]
CPT/HCPCS: 36415; 74176; 74181; 74330; 80048; 80053; 80076; 81001; 81025; 83036; 83690; 85025; 96374; 96375; 99285-25

== ENCOUNTER 2019-04-15 18:22 | Emergency (ER) | payer OTHER ==
[2019-04-15] MEDS: SOD CHLORIDE 0.9% 1,000 ML IV (20:00)
[2019-04-15] MEDS: ONDANSETRON 4 MG INJ IV (20:00)
[2019-04-15] MEDS: morphine 4 MG/ML VIAL IV (20:00)
[2019-04-15 20:07] LABS: ADD MAN DIFF? NO
[2019-04-15 20:14] LABS: BASOPHIL # 0.1 10^3/ul (0.0-0.1); BASOPHILS % 0.6 % (0.0-2.0); EOSINOPHILS # 0.1 10^3/ul (0.0-0.5); EOSINOPHILS % 0.8 % (0.0-7.0); HEMATOCRIT 38.5 % (37.0-47.0); HEMOGLOBIN 12.7 g/dl (12.0-16.0); LYMPHOCYTES # 3.7 10^3/ul (0.8-2.9); LYMPHOCYTES % 43.7 % (15.0-51.0); MEAN CORPUSCULAR HEMOGLOBIN 30.4 pg (29.0-33.0); MEAN CORPUSCULAR VOLUME 92.1 fl (82.0-101.0); MONOCYTE # 0.5 10^3/ul (0.3-0.9); MONOCYTES % 5.3 % (0.0-11.0); NEUTROPHIL # 4.2 10^3/ul (1.6-7.5); NEUTROPHILS % 49.2 % (39.0-77.0); PLATELET COUNT 293 10^3/UL (140-415); RED BLOOD COUNT 4.18 10^6/ul (4.20-5.40); RED CELL DISTRIBUTION WIDTH 13.7 % (11.5-14.5)
[2019-04-15 20:14] LABS: WHITE BLOOD COUNT 8.5 10^3/ul (4.8-10.8)
[2019-04-15 20:18] LABS: ADD UMIC YES; UR ASCORBIC ACID 40 mg/dL (NEGATIVE); UR BILIRUBIN (Dip) NEGATIVE (NEGATIVE); UR BLOOD (Dip) NEGATIVE (NEGATIVE); UR CLARITY SLIGHTLY CLOUDY (CLEAR); UR COLOR YELLOW (YELLOW); UR GLUCOSE (Dip) NEGATIVE (NEGATIVE); UR KETONES (Dip) NEGATIVE (NEGATIVE); UR LEUKOCYTE ESTERASE (Dip) TRACE Leu/ul (NEGATIVE); UR NITRITE (Dip) NEGATIVE (NEGATIVE); UR RBC 1 /HPF (0-5); UR SPECIFIC GRAVITY (Dip) 1.021 (1.003-1.030); UR TOTAL PROTEIN (Dip) NEGATIVE (NEGATIVE); UR UROBILINOGEN (Dip) NEGATIVE (NEGATIVE); UR WBC 7 /HPF (0-5)
[2019-04-15 21:15] LABS: ALANINE AMINOTRANSFERASE 23 IU/L (13-69); ALBUMIN/GLOBULIN RATIO 1.21; ALKALINE PHOSPHATASE 97 IU/L (42-121); ANION GAP 9 (5-13); ASPARTATE AMINO TRANSFERASE 25 IU/L (15-46); BILIRUBIN,INDIRECT 0.8 mg/dl (0-1.1); BILIRUBIN,TOTAL 0.8 mg/dl (0.2-1.3); BLOOD UREA NITROGEN 12 mg/dl (7-20); CARBON DIOXIDE 26 mmol/L (21-31); CHLORIDE 105 mmol/L (97-110); CREATININE 0.61 mg/dl (0.44-1.00); Estimated GFR > 60 mL/min (>60); GLUCOSE 93 mg/dl (70-220); LIPASE 28 U/L (23-300); POTASSIUM 3.2 mmol/L (3.5-5.1); SODIUM 140 mmol/L (135-144); TOTAL PROTEIN 7.3 g/dl (6.1-8.1)
[2019-04-15] MEDS: HYDROmorphONE 0.5 MG/0.5 ML SYG IV (21:54)
== END 2019-04-15 23:50 | disposition home or self-care (01) ==
LOC: E/R 18:22
DX: K86.1 Other chronic pancreatitis (principal); E87.6 Hypokalemia; Z87.891 Personal history of nicotine dependence
CPT/HCPCS: 36415; 80053; 81001; 83690; 85025; 96374; 96375; 99284-25

== ENCOUNTER 2019-07-10 11:24 | Inpatient (IN) | payer OTHER ==
[2019-07-10] MEDS ORDERED: morphine 4 MG/ML VIAL IV (11:41)
[2019-07-10 12:05] LABS: ADD MAN DIFF? NO
[2019-07-10 12:09] LABS: BASOPHIL # 0.1 10^3/ul (0.0-0.1); BASOPHILS % 0.7 % (0.0-2.0); EOSINOPHILS # 0.1 10^3/ul (0.0-0.5); HEMOGLOBIN 13.8 g/dl (12.0-16.0); LYMPHOCYTES % 28.9 % (15.0-51.0); MEAN CORPUSCULAR HEMOGLOBIN 31.2 pg (29.0-33.0); MEAN CORPUSCULAR HGB CONC 32.9 g/dl (32.0-37.0); MEAN PLATELET VOLUME 10.4 fl (7.4-10.4); MONOCYTE # 0.6 10^3/ul (0.3-0.9); MONOCYTES % 7.8 % (0.0-11.0); NEUTROPHIL # 4.3 10^3/ul (1.6-7.5); NEUTROPHILS % 61.2 % (39.0-77.0); PLATELET COUNT 282 10^3/UL (140-415); RED BLOOD COUNT 4.42 10^6/ul (4.20-5.40); RED CELL DISTRIBUTION WIDTH 13.9 % (11.5-14.5)
[2019-07-10 12:09] LABS: WHITE BLOOD COUNT 7.1 10^3/ul (4.8-10.8)
[2019-07-10] MEDS: HYDROmorphONE 2 MG/ML SYG IV (12:28)
[2019-07-10] MEDS: SOD CHLORIDE 0.9% 1,000 ML IV (12:28)
[2019-07-10] MEDS: ONDANSETRON 4 MG INJ IV ×2 (12:28→21:48)
[2019-07-10 12:29] LABS: ALANINE AMINOTRANSFERASE 47 IU/L (13-69); ALBUMIN 4.1 g/dl (3.3-4.9); ALBUMIN/GLOBULIN RATIO 1.07; ALKALINE PHOSPHATASE 129 IU/L (42-121); ANION GAP 10 (5-13); ASPARTATE AMINO TRANSFERASE 78 IU/L (15-46); BILIRUBIN,INDIRECT 0.6 mg/dl (0-1.1); BILIRUBIN,TOTAL 0.6 mg/dl (0.2-1.3); BLOOD UREA NITROGEN 7 mg/dl (7-20); CALCIUM 9.9 mg/dl (8.4-10.2); CARBON DIOXIDE 26 mmol/L (21-31); CHLORIDE 102 mmol/L (97-110); CREATININE 0.63 mg/dl (0.44-1.00); Estimated GFR > 60 mL/min (>60); GLUCOSE 143 mg/dl (70-220); LIPASE 22 U/L (23-300); POTASSIUM 3.8 mmol/L (3.5-5.1); SODIUM 138 mmol/L (135-144); TOTAL PROTEIN 7.9 g/dl (6.1-8.1)
[2019-07-10 12:31] LABS: ADD UMIC YES; UR ASCORBIC ACID NEGATIVE (NEGATIVE); UR BACTERIA FEW /HPF (NONE SEEN); UR BILIRUBIN (Dip) NEGATIVE (NEGATIVE); UR BLOOD (Dip) NEGATIVE (NEGATIVE); UR CLARITY SLIGHTLY CLOUDY (CLEAR); UR COLOR YELLOW (YELLOW); UR GLUCOSE (Dip) NEGATIVE (NEGATIVE); UR HYALINE CAST FEW /HPF (NONE SEEN); UR KETONES (Dip) TRACE mg/dL (NEGATIVE); UR LEUKOCYTE ESTERASE (Dip) 1+ Leu/ul (NEGATIVE); UR MUCUS FEW /HPF (NONE SEEN); UR NITRITE (Dip) NEGATIVE (NEGATIVE); UR RBC 4 /HPF (0-5); UR SPECIFIC GRAVITY (Dip) 1.019 (1.003-1.030); UR SQUAMOUS EPITHELIAL CELL FEW /HPF (FEW); UR TOTAL PROTEIN (Dip) 1+ mg/dl (NEGATIVE); UR UROBILINOGEN (Dip) 1+ mg/dL (NEGATIVE); UR WBC 20 /HPF (0-5)
[2019-07-10 12:40] LABS: TROPONIN-I < 0.012 ng/ml (0.000-0.120)
[2019-07-10] MEDS: CEFTRIAXONE 1 GM/50 ML (PMX) 50 ML IVPB (14:14)
[2019-07-10] MEDS ORDERED: ACETAMINOPHEN 325 MG TAB PO (14:30)
[2019-07-10] MEDS: HYDROmorphONE 1 MG/ML SYG IV ×2 (16:36→21:58)
[2019-07-10] MEDS: HYDROCODONE/APAP (5/325) TAB PO (19:38)
[2019-07-10] MEDS: D5W-0.45 NACL + KCL 20 MEQ 1,000 ML IV (19:39)
[2019-07-10] MEDS: PANTOPRAZOLE (EC) 40 MG TAB PO (20:40)
[2019-07-10] MEDS: CREON (24K-76K-120K) 1 CAP PO (21:00)
[2019-07-10] MEDS: LORAZEPAM 2 MG INJ IV (22:47)
[2019-07-11] MEDS: HYDROCODONE/APAP (5/325) TAB PO ×5 (04:19→20:56)
[2019-07-11] MEDS: ONDANSETRON 4 MG INJ IV ×3 (05:13→18:33)
[2019-07-11] MEDS: HYDROmorphONE 1 MG/ML SYG IV ×5 (05:20→22:38)
[2019-07-11] MEDS: CREON (24K-76K-120K) 1 CAP PO ×3 (08:26→21:00)
[2019-07-11] MEDS: PANTOPRAZOLE (EC) 40 MG TAB PO ×2 (08:28→20:55)
[2019-07-11] MEDS: D5W-0.45 NACL + KCL 20 MEQ 1,000 ML IV ×2 (10:55→23:48)
[2019-07-11] MEDS: CEFTRIAXONE 1 GM/50 ML (PMX) 50 ML IVPB (10:56)
[2019-07-11] MEDS: LORAZEPAM 1 MG TAB PO ×2 (11:02→23:46)
[2019-07-12] MEDS: ONDANSETRON 4 MG INJ IV ×3 (00:56→13:25)
[2019-07-12] MEDS: HYDROCODONE/APAP (5/325) TAB PO ×6 (00:57→22:56)
[2019-07-12] MEDS: HYDROmorphONE 1 MG/ML SYG IV ×5 (04:02→19:59)
[2019-07-12] MEDS: CREON (24K-76K-120K) 1 CAP PO ×3 (07:46→19:59)
[2019-07-12] MEDS: PANTOPRAZOLE (EC) 40 MG TAB PO ×2 (07:46→20:00)
[2019-07-12] MEDS: CEFTRIAXONE 1 GM/50 ML (PMX) 50 ML IVPB (09:14)
[2019-07-12] MEDS: LORAZEPAM 1 MG TAB PO ×2 (09:14→17:20)
[2019-07-12] MEDS: D5W-0.45 NACL + KCL 20 MEQ 1,000 ML IV (15:54)
[2019-07-12] MEDS: LOPERAMIDE 2 MG CAP PO (22:55)
[2019-07-13] MEDS: HYDROmorphONE 1 MG/ML SYG IV ×6 (00:13→21:46)
[2019-07-13] MEDS: LORAZEPAM 1 MG TAB PO ×3 (00:58→23:51)
[2019-07-13] MEDS: ONDANSETRON 4 MG INJ IV ×4 (00:58→19:56)
[2019-07-13] MEDS: HYDROCODONE/APAP (5/325) TAB PO ×5 (03:09→19:57)
[2019-07-13] MEDS: D5W-0.45 NACL + KCL 20 MEQ 1,000 ML IV ×3 (04:12→20:47)
[2019-07-13 05:39] LABS: ADD MAN DIFF? NO
[2019-07-13 05:50] LABS: WHITE BLOOD COUNT 5.8 10^3/ul (4.8-10.8)
[2019-07-13 05:50] LABS: BASOPHILS % 0.7 % (0.0-2.0); EOSINOPHILS # 0.1 10^3/ul (0.0-0.5); EOSINOPHILS % 1.4 % (0.0-7.0); HEMATOCRIT 41.5 % (37.0-47.0); HEMOGLOBIN 13.5 g/dl (12.0-16.0); LYMPHOCYTES # 2.7 10^3/ul (0.8-2.9); LYMPHOCYTES % 47.1 % (15.0-51.0); MEAN CORPUSCULAR HGB CONC 32.5 g/dl (32.0-37.0); MEAN CORPUSCULAR VOLUME 95.2 fl (82.0-101.0); MEAN PLATELET VOLUME 11.2 fl (7.4-10.4); MONOCYTE # 0.6 10^3/ul (0.3-0.9); MONOCYTES % 9.5 % (0.0-11.0); NEUTROPHIL # 2.4 10^3/ul (1.6-7.5); NEUTROPHILS % 41.1 % (39.0-77.0); PLATELET COUNT 262 10^3/UL (140-415); RED BLOOD COUNT 4.36 10^6/ul (4.20-5.40); RED CELL DISTRIBUTION WIDTH 13.9 % (11.5-14.5)
[2019-07-13 06:34] LABS: CALCIUM 9.8 mg/dl (8.4-10.2); CARBON DIOXIDE 27 mmol/L (21-31); CHLORIDE 103 mmol/L (97-110); CREATININE 0.55 mg/dl (0.44-1.00); Estimated GFR > 60 mL/min (>60); GLUCOSE 117 mg/dl (70-220); SODIUM 138 mmol/L (135-144)
[2019-07-13 07:11] LABS: BLOOD UREA NITROGEN < 2 mg/dl (7-20)
[2019-07-13 07:25] LABS: POTASSIUM 3.8 mmol/L (3.5-5.1)
[2019-07-13 07:27] LABS: ANION GAP 8 (5-13)
[2019-07-13] MEDS: CREON (24K-76K-120K) 1 CAP PO ×3 (08:36→20:46)
[2019-07-13] MEDS: LOPERAMIDE 2 MG CAP PO (08:36)
[2019-07-13] MEDS: PANTOPRAZOLE (EC) 40 MG TAB PO ×2 (08:36→20:46)
[2019-07-13] MEDS: CEFTRIAXONE 1 GM/50 ML (PMX) 50 ML IVPB (10:22)
[2019-07-13] MEDS: METOCLOPRAMIDE 10 MG INJ IV ×2 (10:28→17:40)
[2019-07-13] MEDS: metroNIDAZOLE 500 MG TAB PO ×3 (12:25→23:48)
[2019-07-14] MEDS: HYDROmorphONE 1 MG/ML SYG IV ×5 (02:30→23:00)
[2019-07-14] MEDS: ONDANSETRON 4 MG INJ IV ×4 (02:30→21:53)
[2019-07-14] MEDS: HYDROCODONE/APAP (5/325) TAB PO ×4 (04:34→21:53)
[2019-07-14] MEDS: metroNIDAZOLE 500 MG TAB PO ×4 (05:07→23:00)
[2019-07-14 05:11] LABS: ADD MAN DIFF? NO
[2019-07-14 05:17] LABS: BASOPHILS % 0.8 % (0.0-2.0); EOSINOPHILS # 0.1 10^3/ul (0.0-0.5); EOSINOPHILS % 1.9 % (0.0-7.0); HEMATOCRIT 42.8 % (37.0-47.0); HEMOGLOBIN 13.7 g/dl (12.0-16.0); LYMPHOCYTES # 2.6 10^3/ul (0.8-2.9); LYMPHOCYTES % 49.5 % (15.0-51.0); MEAN CORPUSCULAR HEMOGLOBIN 30.8 pg (29.0-33.0); MEAN CORPUSCULAR VOLUME 96.2 fl (82.0-101.0); MONOCYTE # 0.6 10^3/ul (0.3-0.9); MONOCYTES % 10.3 % (0.0-11.0); NEUTROPHILS % 37.3 % (39.0-77.0); PLATELET COUNT 275 10^3/UL (140-415); RED BLOOD COUNT 4.45 10^6/ul (4.20-5.40); RED CELL DISTRIBUTION WIDTH 13.8 % (11.5-14.5)
[2019-07-14 05:17] LABS: WHITE BLOOD COUNT 5.3 10^3/ul (4.8-10.8)
[2019-07-14 05:33] LABS: ANION GAP 8 (5-13); CALCIUM 10.1 mg/dl (8.4-10.2); CARBON DIOXIDE 30 mmol/L (21-31); CHLORIDE 101 mmol/L (97-110); CREATININE 0.58 mg/dl (0.44-1.00); Estimated GFR > 60 mL/min (>60); GLUCOSE 128 mg/dl (70-220); POTASSIUM 3.8 mmol/L (3.5-5.1); SODIUM 139 mmol/L (135-144)
[2019-07-14 05:36] LABS: BLOOD UREA NITROGEN < 2 mg/dl (7-20)
[2019-07-14] MEDS: CREON (24K-76K-120K) 1 CAP PO ×3 (08:28→20:18)
[2019-07-14] MEDS: PANTOPRAZOLE (EC) 40 MG TAB PO ×2 (08:28→20:18)
[2019-07-14] MEDS: D5W-0.45 NACL + KCL 20 MEQ 1,000 ML IV ×2 (08:30→23:02)
[2019-07-14] MEDS: CEFTRIAXONE 1 GM/50 ML (PMX) 50 ML IVPB (10:00)
[2019-07-14] MEDS: LORAZEPAM 1 MG TAB PO ×2 (11:36→20:18)
[2019-07-14] MEDS: VANCOMYCIN HCL 250 MG/5ML POSYG PO ×3 (11:40→23:01)
[2019-07-15] MEDS: HYDROmorphONE 1 MG/ML SYG IV ×4 (02:40→18:23)
[2019-07-15] MEDS: ONDANSETRON 4 MG INJ IV ×3 (03:50→20:48)
[2019-07-15] MEDS: LORAZEPAM 1 MG TAB PO ×3 (03:50→22:36)
[2019-07-15] MEDS: metroNIDAZOLE 500 MG TAB PO ×3 (05:12→18:23)
[2019-07-15] MEDS: VANCOMYCIN HCL 250 MG/5ML POSYG PO ×3 (05:13→18:23)
[2019-07-15] MEDS: PANTOPRAZOLE (EC) 40 MG TAB PO ×2 (07:40→20:47)
[2019-07-15] MEDS: CREON (24K-76K-120K) 1 CAP PO ×3 (07:41→20:47)
[2019-07-15] MEDS: HYDROCODONE/APAP (5/325) TAB PO ×3 (10:27→20:48)
[2019-07-15] MEDS: CEFTRIAXONE 1 GM/50 ML (PMX) 50 ML IVPB (10:28)
[2019-07-15] MEDS: D5W-0.45 NACL + KCL 20 MEQ 1,000 ML IV (14:13)
[2019-07-16] MEDS: metroNIDAZOLE 500 MG TAB PO ×5 (00:06→23:35)
[2019-07-16] MEDS: VANCOMYCIN HCL 250 MG/5ML POSYG PO ×5 (00:06→23:35)
[2019-07-16] MEDS: HYDROmorphONE 1 MG/ML SYG IV ×5 (00:06→22:25)
[2019-07-16] MEDS: HYDROCODONE/APAP (5/325) TAB PO ×4 (04:36→20:37)
[2019-07-16] MEDS: ONDANSETRON 4 MG INJ IV ×3 (04:36→20:36)
[2019-07-16] MEDS: D5W-0.45 NACL + KCL 20 MEQ 1,000 ML IV ×3 (04:37→22:02)
[2019-07-16 06:28] LABS: ALANINE AMINOTRANSFERASE 37 IU/L (13-69); ALBUMIN 4.1 g/dl (3.3-4.9); ALKALINE PHOSPHATASE 97 IU/L (42-121); ASPARTATE AMINO TRANSFERASE 44 IU/L (15-46); BILIRUBIN,INDIRECT 0.2 mg/dl (0-1.1); BILIRUBIN,TOTAL 0.2 mg/dl (0.2-1.3); TOTAL PROTEIN 7.4 g/dl (6.1-8.1)
[2019-07-16] MEDS: PANTOPRAZOLE (EC) 40 MG TAB PO ×2 (09:20→20:37)
[2019-07-16] MEDS: CREON (24K-76K-120K) 1 CAP PO ×3 (09:20→20:37)
[2019-07-16] MEDS: CEFTRIAXONE 1 GM/50 ML (PMX) 50 ML IVPB (09:21)
[2019-07-16] MEDS: LORAZEPAM 1 MG TAB PO ×2 (13:25→23:35)
[2019-07-17] MEDS: HYDROCODONE/APAP (5/325) TAB PO ×5 (01:41→20:39)
[2019-07-17] MEDS: HYDROmorphONE 1 MG/ML SYG IV ×5 (04:14→23:04)
[2019-07-17] MEDS: ONDANSETRON 4 MG INJ IV ×2 (04:14→10:26)
[2019-07-17 05:07] LABS: ADD MAN DIFF? NO
[2019-07-17 05:11] LABS: WHITE BLOOD COUNT 4.7 10^3/ul (4.8-10.8)
[2019-07-17 05:11] LABS: BASOPHIL # 0.1 10^3/ul (0.0-0.1); BASOPHILS % 1.5 % (0.0-2.0); EOSINOPHILS # 0.1 10^3/ul (0.0-0.5); EOSINOPHILS % 2.4 % (0.0-7.0); HEMATOCRIT 42.3 % (37.0-47.0); HEMOGLOBIN 13.6 g/dl (12.0-16.0); LYMPHOCYTES # 2.6 10^3/ul (0.8-2.9); LYMPHOCYTES % 55.4 % (15.0-51.0); MEAN CORPUSCULAR HEMOGLOBIN 31.3 pg (29.0-33.0); MEAN CORPUSCULAR HGB CONC 32.2 g/dl (32.0-37.0); MEAN CORPUSCULAR VOLUME 97.5 fl (82.0-101.0); MEAN PLATELET VOLUME 11.2 fl (7.4-10.4); MONOCYTE # 0.4 10^3/ul (0.3-0.9); MONOCYTES % 9.2 % (0.0-11.0); NEUTROPHIL # 1.5 10^3/ul (1.6-7.5); NEUTROPHILS % 31.1 % (39.0-77.0); PLATELET COUNT 247 10^3/UL (140-415); RED BLOOD COUNT 4.34 10^6/ul (4.20-5.40); RED CELL DISTRIBUTION WIDTH 13.5 % (11.5-14.5)
[2019-07-17] MEDS: metroNIDAZOLE 500 MG TAB PO ×3 (05:48→18:21)
[2019-07-17] MEDS: VANCOMYCIN HCL 250 MG/5ML POSYG PO ×3 (05:49→18:21)
[2019-07-17 06:33] LABS: ANION GAP 7 (5-13); CALCIUM 10.6 mg/dl (8.4-10.2); CARBON DIOXIDE 27 mmol/L (21-31); CHLORIDE 105 mmol/L (97-110); CREATININE 0.53 mg/dl (0.44-1.00); Estimated GFR > 60 mL/min (>60); GLUCOSE 121 mg/dl (70-220); SODIUM 139 mmol/L (135-144)
[2019-07-17 06:35] LABS: BLOOD UREA NITROGEN < 2 mg/dl (7-20); POTASSIUM 3.9 mmol/L (3.5-5.1)
[2019-07-17] MEDS: CREON (24K-76K-120K) 1 CAP PO ×3 (08:18→20:38)
[2019-07-17] MEDS: PANTOPRAZOLE (EC) 40 MG TAB PO ×2 (08:19→20:38)
[2019-07-17] MEDS: CEFTRIAXONE 1 GM/50 ML (PMX) 50 ML IVPB (10:20)
[2019-07-17] MEDS: D5W-0.45 NACL + KCL 20 MEQ 1,000 ML IV (12:47)
[2019-07-17] MEDS: LORAZEPAM 1 MG TAB PO (16:48)
[2019-07-18] MEDS: ONDANSETRON 4 MG INJ IV ×3 (00:01→21:27)
[2019-07-18] MEDS: VANCOMYCIN HCL 250 MG/5ML POSYG PO ×5 (00:02→23:57)
[2019-07-18] MEDS: metroNIDAZOLE 500 MG TAB PO ×5 (00:02→23:57)
[2019-07-18] MEDS: HYDROCODONE/APAP (5/325) TAB PO ×5 (02:25→23:00)
[2019-07-18] MEDS: HYDROmorphONE 1 MG/ML SYG IV ×4 (04:36→21:27)
[2019-07-18] MEDS: LORAZEPAM 1 MG TAB PO ×3 (05:20→23:57)
[2019-07-18] MEDS: D5W-0.45 NACL + KCL 20 MEQ 1,000 ML IV ×2 (05:28→19:23)
[2019-07-18 05:31] LABS: WHITE BLOOD COUNT 5.4 10^3/ul (4.8-10.8)
[2019-07-18 05:31] LABS: ADD MAN DIFF? NO; BASOPHIL # 0.1 10^3/ul (0.0-0.1); BASOPHILS % 0.9 % (0.0-2.0); EOSINOPHILS # 0.1 10^3/ul (0.0-0.5); EOSINOPHILS % 2.2 % (0.0-7.0); HEMATOCRIT 41.6 % (37.0-47.0); HEMOGLOBIN 13.9 g/dl (12.0-16.0); LYMPHOCYTES # 2.7 10^3/ul (0.8-2.9); LYMPHOCYTES % 49.9 % (15.0-51.0); MEAN CORPUSCULAR HEMOGLOBIN 31.3 pg (29.0-33.0); MEAN CORPUSCULAR HGB CONC 33.4 g/dl (32.0-37.0); MEAN CORPUSCULAR VOLUME 93.7 fl (82.0-101.0); MEAN PLATELET VOLUME 11.7 fl (7.4-10.4); MONOCYTE # 0.6 10^3/ul (0.3-0.9); MONOCYTES % 11.3 % (0.0-11.0); NEUTROPHIL # 1.9 10^3/ul (1.6-7.5); NEUTROPHILS % 35.5 % (39.0-77.0); PLATELET COUNT 271 10^3/UL (140-415); RED BLOOD COUNT 4.44 10^6/ul (4.20-5.40); RED CELL DISTRIBUTION WIDTH 13.5 % (11.5-14.5)
[2019-07-18 05:57] LABS: ANION GAP 7 (5-13); BLOOD UREA NITROGEN 2 mg/dl (7-20); CALCIUM 10.2 mg/dl (8.4-10.2); CARBON DIOXIDE 25 mmol/L (21-31); CHLORIDE 105 mmol/L (97-110); CREATININE 0.51 mg/dl (0.44-1.00); Estimated GFR > 60 mL/min (>60); GLUCOSE 132 mg/dl (70-220); POTASSIUM 3.7 mmol/L (3.5-5.1); SODIUM 137 mmol/L (135-144)
[2019-07-18] MEDS: PANTOPRAZOLE (EC) 40 MG TAB PO ×2 (08:39→21:26)
[2019-07-18] MEDS: CREON (24K-76K-120K) 1 CAP PO ×3 (08:41→21:26)
[2019-07-18] MEDS: CEFTRIAXONE 1 GM/50 ML (PMX) 50 ML IVPB (10:50)
[2019-07-19] MEDS: HYDROmorphONE 1 MG/ML SYG IV ×3 (02:44→11:36)
[2019-07-19] MEDS: ONDANSETRON 4 MG INJ IV ×2 (04:01→12:46)
[2019-07-19] MEDS: HYDROCODONE/APAP (5/325) TAB PO ×3 (04:01→12:46)
[2019-07-19 05:48] LABS: ANION GAP 5 (5-13); BLOOD UREA NITROGEN 3 mg/dl (7-20); CALCIUM 9.9 mg/dl (8.4-10.2); CARBON DIOXIDE 27 mmol/L (21-31); CHLORIDE 104 mmol/L (97-110); CREATININE 0.51 mg/dl (0.44-1.00); Estimated GFR > 60 mL/min (>60); GLUCOSE 130 mg/dl (70-220); POTASSIUM 3.7 mmol/L (3.5-5.1); SODIUM 136 mmol/L (135-144)
[2019-07-19] MEDS: metroNIDAZOLE 500 MG TAB PO ×2 (06:45→11:36)
[2019-07-19] MEDS: VANCOMYCIN HCL 250 MG/5ML POSYG PO ×2 (06:45→11:36)
[2019-07-19] MEDS: PANTOPRAZOLE (EC) 40 MG TAB PO (08:28)
[2019-07-19] MEDS: CREON (24K-76K-120K) 1 CAP PO ×2 (08:28→12:46)
[2019-07-19] MEDS: D5W-0.45 NACL + KCL 20 MEQ 1,000 ML IV (08:36)
[2019-07-19] MEDS: CEFTRIAXONE 1 GM/50 ML (PMX) 50 ML IVPB (08:36)
== END 2019-07-19 13:35 | disposition home or self-care (01) | DRG 439 ==
LOC: E/R 11:24 → MS1 18:09
DX: K86.1 Other chronic pancreatitis (principal); A04.72 Enterocolitis due to Clostridium difficile, not specified as recurrent; B37.89 Other sites of candidiasis; N39.0 Urinary tract infection, site not specified; K21.9 Gastro-esophageal reflux disease without esophagitis; F41.9 Anxiety disorder, unspecified; F12.20 Cannabis dependence, uncomplicated
CPT/HCPCS: 36415; 74176; 74181; 80048; 80053; 80076; 81001; 83690; 84484; 85025; 87045; 87075; 87086; 93005; 96374; 96375; 99285-25